=== PATIENT | male | born 1935 | race Caucasian/White ===

== ENCOUNTER 2018-02-19 21:05 | Emergency (ER) | payer OTHER ==
--- OUTSIDE RECORDS SUMMARY | 2018-02-19 21:07 | XMS REPORT ---
:1935 Author Organization eClinicalWorks Care Team Providers Name Role Phone Rohan Javan Provider Role Unavailable Allergies No Known Allergies Problems Problem Type Condition Code Onset Dates Condition Status Problem Ulcer of foot, left, with fat layer L97.522 Active exposed Problem Peripheral arterial disease I73.9 Active Problem Ulcerated, foot, right, with fat L97.512 Active layer exposed Problem Peripheral Vascular Disease 443.9 Active Problem Hallux rigidus 735.2 Active Problem Painful Scar 709.2 Active Medications No Known Medications Results No Known Results Summary Purpose eClinicalWorks Submission
--- OUTSIDE RECORDS SUMMARY | 2018-02-19 21:07 | XMS REPORT ---
:1935 Author Organization eClinicalWorks Care Team Providers Name Role Phone Javan Madrigal Provider Role Unavailable Allergies No Known Allergies [...]
--- OUTSIDE RECORDS SUMMARY | 2018-02-19 21:07 | XMS REPORT ---
:1935 [facility] Address [address] [place] [address] [address] [place] [address] Care Team Providers Name Role Phone IRA NOLAND Primary Care Provider Unavailable Problems This patient has no known problems. Allergies, Adverse Reactions, Alerts This patient has no known allergies or adverse reactions. Medications This patient has no known medications. Encounters Start End Encounter Admission Attending Care Care Encounter Date/Time Date/Time Type Type Clinicians Facility Department ID 2016-01-03 2016-01-03 Outpatient [facility] [id number] 00:01:00 00:01:00 2015-12-03 2015-12-03 Outpatient [facility] [id number] 00:01:00 00:01:00 2015-11-03 2015-11-03 Outpatient [facility] [id number] 00:01:00 00:01:00 2015-10-06 2015-10-06 Outpatient [facility] [id number] 13:31:00 13:31:00
--- OUTSIDE RECORDS SUMMARY | 2018-02-19 21:07 | XMS REPORT | Continuity of Care Document ---
:1935 Author Organization Interface Problems Problem Status Onset Classification Date Comments Source Date Reported Ulcer of foot, Active Problem 08/13/2017 [facility] left, with fat Podiatry layer exposed Assoc Peripheral Active Problem 08/13/2017 [facility] arterial Podiatry disease Assoc Ulcerated, Active Problem 08/13/2017 [facility] foot, right, Podiatry with fat layer Assoc exposed Peripheral Active Problem 08/13/2017 [facility] Vascular Podiatry Disease [facility] Hallux rigidus Active Problem 08/13/2017 [facility] Painful Scar Active Problem 08/13/2017 [facility] Medications Medication Details Route Status Patient Ordering Order Source Instructions Provider Date Allergies, Adverse Reactions, Alerts Substance Category Reaction Severity Reaction Status Date Comments Source type Reported Immunizations Immunization Date Given Site Status Last Updated Comments Source Results Order Results Value Reference Date Interpretation Comments Source Name Range Vital Signs Vital Sign Value Date Comments Source Encounters Location Location Encounter Encounter Reason Attending ADM DC Status Source Details Type Number For Provider Date Date Visit Procedures Procedure Code Date Perfomer Comments Source
--- OUTSIDE RECORDS SUMMARY | 2018-02-19 21:07 | XMS REPORT ---
:1935 Author Organization eClinicalWorks Care Team Providers Name Role Phone Javan Madrigal Provider Role Unavailable Allergies No Known Allergies Problems Problem Type Condition Code Onset Dates Condition Status Problem Ulcerated, foot, right, with fat L97.512 Active layer exposed Problem Peripheral arterial disease I73.9 Active Problem Ulcer of foot, left, with fat layer L97.522 Active exposed Problem Peripheral Vascular Disease 443.9 Active Problem Painful Scar 709.2 Active Problem Hallux rigidus 735.2 Active Medications No Known Medications Results No Known Results Summary Purpose eClinicalWorks Submission
[2018-02-19] MEDS ORDERED: NA CHLORIDE 0.9% 1,000 ML ONE (22:10)
[2018-02-19 22:18] LABS: Absolute Lymphocytes (CBC) 0.3 K/uL (0.7-4.9); Absolute Monocytes 1.2 K/uL (0.1-1.3); Absolute Neutrophil 3.3 K/uL (1.8-8.0); Basophils % 0.3 % (0-1.3); Eosinophils % 0.2 % (0-4.4); Hematocrit 34.5 % (39.6-49.0); Lymphocytes % 7.2 % (15.3-44.8); MCV 88.9 fL (80-100); MPV 9.3 fL (7.6-11.3); Monocytes % 24.5 % (3.3-12.3); Protime INR 2.28; RBC Red Blood Cell Count 3.88 M/uL (4.33-5.43)
[2018-02-19 22:35] LABS: ALT/SGPT 13 U/L (12-78); AST/SGOT 15 U/L (15-37); Albumin 3.5 g/dL (3.4-5.0); Alkaline Phosphatase 79 U/L (45-117); BUN Blood Urea Nitrogen 16 mg/dL (7-18); Bicarbonate 26 mmol/L (21-32); Bilirubin Direct 0.2 mg/dL (0-0.2); Bilirubin Total 0.8 mg/dL (0.2-1.0); CKMB Creatine Kinase MB < 1.0 ng/mL (0.3-3.6); Creatine Phosphokinase 31 U/L (39-308); Glucose Level 106 mg/dL (74-106); Lipase 77 U/L (73-393); Magnesium 2.4 mg/dL (1.8-2.4); NT PRO-BNP 3458 pg/mL (<450); Potassium 3.8 mmol/L (3.5-5.1); Protein, Total 7.2 g/dL (6.4-8.2); Sodium Level 137 mmol/L (136-145)
[2018-02-19 23:07] LABS: Anisocytosis 1+; Blood Morphology Comment NOTED (NOT SEEN); Platelet Estimate DECR; Platelets, Giant RARE
[2018-02-19] MEDS ORDERED: CEFTRIAXONE 1000 MG/VIAL ONE (23:56)
[2018-02-19] MEDS ORDERED: NA CHLORIDE 0.9% 100 ML IV ONE (23:56)
[2018-02-20 00:10] LABS: Urine Blood 2+ (NEG); Urine Glucose NEGATIVE (NEG); Urine Protein TRACE (NEG)
[2018-02-20 00:23] LABS: Urine Bacteria >50 /HPF (NONE SEEN); Urine Culture Reflex Order REFLEXED
--- NOTE | 2018-02-20 00:40 | EDPHYS ---
Physician Documentation [facility] Name: Ernie Carmona Age: 82 yrs Sex: Male : 1935 Arrival Date: 02/19/2018 Time: 21:05 Bed 27 Private MD: ED Physician Franky Wallace HPI: 02/19 23:31 This 82 yrs old Male presents to ER via Wheelchair with complaints of Urinary wa Problem. 23:31 c/o generalized tiredness today. per family, this happens when he has a bladder wa infection. pt has h/o bladder CA. also states have been having difficulty voiding urine. Onset: The symptoms/episode began/occurred today. Severity of symptoms: At their worst the symptoms were moderate in the emergency department the symptoms are unchanged. The patient has not experienced similar symptoms in the past. The patient has not recently seen a physician. Historical: - Allergies: 21:20 PENICILLINS; tl2 - Home Meds: 21:20 Xanax 0.5 mg Oral tab [Active]; cetirizine 10 mg oral tab 1 tab once daily [Active]; tl2 metoprolol tartrate 25 mg Oral tab 1 tab 2 times per day [Active]; furosemide 20 mg Oral tab 1 tab once daily [Active]; atorvastatin 20 mg oral tab 1 tab once daily [Active]; amiodarone 100 mg Oral tab 1 tab once daily [Active]; digoxin 125 mcg Oral tab 1 tab once daily [Active]; Xarelto 15 mg oral tab [Active]; potassium chloride 10 mEq Oral cpER 1 cap once daily [Active]; Cystex Cranberry 1,937-188 mg/15 mL oral liqd [Active]; famotidine 40 mg Oral tab 1 tab once daily [Active]; loratadine 10 mg oral tab 1 tab once daily [Active]; - 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 - Social history:: Smoking status: Patient/guardian denies using tobacco. - Ebola Screening: : No symptoms or risks identified at this time. - Family history:: not pertinent. - Hospitalizations: : No recent hospitalization is reported. ROS: 23:34 Constitutional: Negative for fever, chills, and weight loss, Eyes: Negative for injury, wa pain, redness, and discharge, ENT: Negative for injury, pain, and discharge, Neck: Negative for injury, pain, and swelling, Cardiovascular: Negative for chest pain, palpitations, and edema, Respiratory: Negative for shortness of breath, cough, wheezing, and pleuritic chest pain, Abdomen/GI: Negative for abdominal pain, nausea, vomiting, diarrhea, and constipation, Back: Negative for injury and pain, MS/Extremity: Negative for injury and deformity, Skin: Negative for injury, rash, and discoloration, Neuro: Negative for headache, weakness, numbness, tingling, and seizure, Psych: Negative for depression, anxiety, suicide ideation, homicidal ideation, and hallucinations. 23:34 : Positive for difficulty urinating, Negative for pelvic pain. Exam: 23:36 Constitutional: This is a well developed, well nourished patient who is awake, alert, wa and in no acute distress. Head/Face: Normocephalic, atraumatic. Eyes: Pupils equal round and reactive to light, extra-ocular motions intact. Lids and lashes normal. Conjunctiva and sclera are non-icteric and not injected. Cornea within normal limits. Periorbital areas with no swelling, redness, or edema. ENT: Nares patent. No nasal discharge, no septal abnormalities noted. Tympanic membranes are normal and external auditory canals are clear. Oropharynx with no redness, swelling, or masses, exudates, or evidence of obstruction, uvula midline. Mucous membranes moist. Neck: Trachea midline, no thyromegaly or masses palpated, and no cervical lymphadenopathy. Supple, full range of motion without nuchal rigidity, or vertebral point tenderness. No Meningismus. Chest/axilla: Normal chest wall appearance and motion. Nontender with no deformity. No lesions are appreciated. Cardiovascular: Regular rate and rhythm with a normal S1 and S2. No gallops, murmurs, or rubs. Normal PMI, no JVD. No pulse deficits. Respiratory: Lungs have equal breath sounds bilaterally, clear to auscultation and percussion. No rales, rhonchi or wheezes noted. No increased work of breathing, no retractions or nasal flaring. Abdomen/GI: Soft, non-tender, with normal bowel sounds. No distension or tympany. No guarding or rebound. No evidence of tenderness throughout. Back: No spinal tenderness. No costovertebral tenderness. Full range of motion. Skin: Warm, dry with normal turgor. Normal color with no rashes, no lesions, and no evidence of cellulitis. MS/ Extremity: Pulses equal, no cyanosis. Neurovascular intact. Full, normal range of motion. Neuro: Awake and alert, GCS 15, oriented to person, place, time, and situation. Cranial nerves II-XII grossly intact. Motor strength 5/5 in all extremities. Sensory grossly intact. Cerebellar exam normal. Normal gait. Psych: Awake, alert, with orientation to person, place and time. Behavior, mood, and affect are within normal limits. 23:36 : Male external genitalia: normal, Bladder: soft suprapubis. non-tender. Vital Signs: 21:08 BP 115 / 65; Pulse 75; Resp 18; Temp 101; Pulse Ox 97% on R/A; Weight 74.84 kg; Height kr2 5 ft. 10 in. (177.80 cm); Pain 0/10; 22:35 BP 100 / 52; Pulse 68; Resp 22; Temp 98.5; Pulse Ox 95% on R/A; kr2 23:30 BP 93 / 59; Pulse 68; Resp 20; Pulse Ox 96% on R/A; kr2 02/20 00:15 BP 98 / 53; Pulse 58; Resp 20; Pulse Ox 96% on R/A; kr2 02/19 21:08 Body Mass Index 23.67 (74.84 kg, 177.80 cm) [facility] MDM: 02/19 21:25 Patient medically screened. nj 23:37 Differential Diagnosis r/o acute infection. . Data reviewed: vital signs, nurses notes, nj lab test result(s). Test interpretation: by ED physician or midlevel provider: labs noted for anemia and low platelets. elevated BNP. 02/20 00:37 Test interpretation: by ED physician or midlevel provider: labs noted for low plts and wa elevated BNP. UA noted positive for UTI. Response to treatment: the patient's symptoms have markedly improved after treatment. ED course: IV rocephin given. pt admitted to improvement. will d/c with meds for UTI and close f/u with PMD. 02/19 21:54 Order name: Basic Metabolic Panel nj 02/19 21:54 Order name: Urine Microscopic Only nj 02/19 21:56 Order name: Basic Metabolic Panel; Complete Time: 23:26 nj 02/19 21:56 Order name: CBC with Diff; Complete Time: 23:27 nj 02/19 21:56 Order name: Ckmb; Complete Time: 23:28 nj 02/19 21:56 Order name: CPK; Complete Time: 23:27 nj 02/19 21:56 Order name: LFT's; Complete Time: 23:27 nj 02/19 21:56 Order name: Magnesium; Complete Time: 23: nj 02/19 21:56 Order name: NT PRO-BNP; Complete Time: 23: nj 02/19 21:56 Order name: PT-INR; Complete Time: 23:28 nj 02/19 21:54 Order name: IV Saline Lock; Complete Time: 22: nj 02/19 21:54 Order name: Labs collected and sent; Complete Time: 22: nj 02/19 21:54 Order name: Urine Dipstick-Ancillary (obtain specimen); Complete Time: 00: nj 02/19 21:56 Order name: Troponin (emerg Dept Use Only); Complete Time: 23:28 nj 02/19 21:56 Order name: XRAY Chest (1 view) nj 02/19 21:56 Order name: EKG; Complete Time: 21:56 nj 02/19 21:56 Order name: Cardiac monitoring; Complete Time: 22:00 nj 02/19 21:56 Order name: EKG - Nurse/Tech; Complete Time: 22:00 nj 02/19 21:56 Order name: IV Saline Lock; Complete Time: 22:00 nj 02/19 21:56 Order name: Labs collected and sent; Complete Time: 22: nj 02/19 22:11 Order name: Lipase; Complete Time: 23: [facility]IL 02/19 23:07 Order name: Manual Differential; Complete Time: 23: [facility] 02/19 23:56 Order name: Urine Dipstick--Ancillary (enter results) fl 02/20 00:24 Order name: Urine Culture [facility] 02/19 21:56 Order name: O2 Per Protocol; Complete Time: 22: nj 02/19 21:56 Order name: O2 Sat Monitoring; Complete Time: 22:01 nj 02/19 21:56 Order name: Urine Dipstick-Ancillary (obtain specimen); Complete Time: 00:09 nj 02/20 00:08 Order name: Straight Cath - Urine; Complete Time: 00:08 [facility] Administered Medications: 02/19 22:09 Drug: NS 0.9% 1000 ml Route: IV; Rate: 1 bolus; Site: right antecubital; kr2 23:30 Follow up: Response: No adverse reaction; IV Status: Completed infusion kr2 02/20 00:00 Drug: Rocephin - (cefTRIAXone) 2 grams Route: IVPB; Infused Over: 30 mins; Site: right kr2 antecubital; 00:30 Follow up: Response: No adverse reaction; IV Status: Completed infusion 2 Disposition: 02/20/18 00:39 Discharged to Home. Impression: Acute Weakness, Acute UTI. - Condition is Stable. - Discharge Instructions: Urinary Tract Infection, Adult, Iras-jz-Xtji, Weakness, Npwf-jv-Zzah. - Prescriptions for Keflex 500 mg Oral Capsule - take 1 capsule by ORAL route every 8 hours for 5 days; 15 capsule. - Medication Reconciliation Form, Thank You Letter, Antibiotic Education, Prescription Opioid Use form. - Follow up: Private Physician; When: 1 - 2 days; Reason: Re-evaluation by your physician. - Problem is new. - Symptoms have improved. - Notes: take antibiotics as prescribed. return for any worsening concerns you may have Signatures: Dispatcher [facility] Jocelyne Sprague RN RN tl2 Franky Wallace MD MD nj Maryjane Lucero, SAMREEN RN kr2 Corrections: (The following items were deleted from the chart) 02/19 22:10 21:55 Basic Metabolic Panel ordered. [facility] 22:10 21:55 CBC+H.LAB.BRZ ordered. [facility] 22:10 21:55 HEPATIC FUNCTION+C.LAB.BRZ ordered. [facility] 22:10 21:55 LIPASE+C.LAB.BRZ ordered. [facility] 02/20 00:59 00:39 02/20/2018 00:39 Discharged to Home. Impression: Acute Weakness; Acute UTI. kr2 Condition is Stable. Forms are Medication Reconciliation Form, Thank You Letter, Antibiotic Education, Prescription Opioid Use. Follow up: Private Physician; When: 1 - 2 days; Reason: Re-evaluation by your physician. Problem is new. Symptoms have improved. wa
--- NOTE | 2018-02-20 00:40 | ER ---
Nurse's Notes [facility] Name: Ernie Carmona Age: 82 yrs Sex: Male : 1935 Arrival Date: 02/19/2018 Time: 21:05 Bed 27 Private MD: Diagnosis: Acute Weakness;Acute UTI Presentation: 02/19 21:09 Presenting complaint: Patient states: I started feeling very weak and tired today. I kr2 have been sneezing and had a runny nose. Its also taking me a long time to urinate lately. Transition of care: patient was not received from another setting of care. Onset of symptoms was February 19, 2018. Risk Assessment: Do you want to hurt yourself or someone else? Patient reports no desire to harm self or others. Initial Sepsis Screen: Does the patient meet any 2 criteria? RR > 20 per min. Temp <36.0*C (96.8*F)) or > 38.3*C (100.4*F). Yes Does the patient have a suspected source of infection? Yes: Other: family reports patient has a history of bladder cancer and UTI's. Patient reports it has been harder for him to urinate recently. Care prior to arrival: None. 21:09 Method Of Arrival: Wheelchair kr2 21:09 Acuity: SKIP 3 kr2 Triage Assessment: 21:13 General: Appears in no apparent distress. comfortable, well groomed, well developed, kr2 well nourished, Behavior is calm, cooperative, appropriate for age. Pain: Denies pain. Historical: - Allergies: 21:20 PENICILLINS; tl2 - Home Meds: 21:20 Xanax 0.5 mg Oral tab [Active]; cetirizine 10 mg oral tab 1 tab once daily [Active]; tl2 metoprolol tartrate 25 mg Oral tab 1 tab 2 times per day [Active]; furosemide 20 mg Oral tab 1 tab once daily [Active]; atorvastatin 20 mg oral tab 1 tab once daily [Active]; amiodarone 100 mg Oral tab 1 tab once daily [Active]; digoxin 125 mcg Oral tab 1 tab once daily [Active]; Xarelto 15 mg oral tab [Active]; potassium chloride 10 mEq Oral cpER 1 cap once daily [Active]; Cystex Cranberry 1,937-188 mg/15 mL oral liqd [Active]; famotidine 40 mg Oral tab 1 tab once daily [Active]; loratadine 10 mg oral tab 1 tab once daily [Active]; - 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 - Social history:: Smoking status: Patient/guardian denies using tobacco. - Ebola Screening: : No symptoms or risks identified at this time. - Family history:: not pertinent. - Hospitalizations: : No recent hospitalization is reported. Screenin:11 Abuse screen: Denies threats or abuse. Denies injuries from another. Nutritional kr2 screening: No deficits noted. Tuberculosis screening: No symptoms or risk factors identified. Fall Risk None identified. Assessment: 21:15 General: Appears in no apparent distress. comfortable, well groomed, well developed, kr2 well nourished, Behavior is calm, cooperative, appropriate for age. Pain: Denies pain. Neuro: Level of Consciousness is awake, alert, obeys commands, Oriented to person, place, time, situation, Appropriate for age. Cardiovascular: Reports fatigue, Capillary refill < 3 seconds in bilateral fingers Rhythm is regular. Respiratory: Airway is patent Respiratory effort is even, unlabored, Respiratory pattern is regular, symmetrical. GI: Abdomen is flat, non-distended. : Reports "it takes me a long time to urinate, I am having more difficulty lately' Denies burning with urination. EENT: Oral mucosa is dry. Derm: Skin is intact, with poor turgor Skin is sweaty, patient was wearing heavy long sleeve sweater upon arrival, which was removed Skin is pink, Skin temperature is hot. Musculoskeletal: Circulation, motion, and sensation intact. Range of motion: limited in left hip, left knee, right hip and right knee. 22:30 Reassessment: Patient appears in no apparent distress at this time. Patient and/or kr2 family updated on plan of care and expected duration. Pain level reassessed. Patient is alert, oriented x 3, equal unlabored respirations, skin warm/dry/pink. Patient denies pain at this time. 23:30 Reassessment: Patient appears in no apparent distress at this time. Patient and/or kr2 family updated on plan of care and expected duration. Pain level reassessed. Patient is alert, oriented x 3, equal unlabored respirations, skin warm/dry/pink. Patient denies pain at this time. 02/20 00:14 Reassessment: Patient appears in no apparent distress at this time. Patient and/or kr2 family updated on plan of care and expected duration. Pain level reassessed. Patient is alert, oriented x 3, equal unlabored respirations, skin warm/dry/pink. Patient denies pain at this time. 00:58 Reassessment: Patient appears in no apparent distress at this time. Patient and/or kr2 family updated on plan of care and expected duration. Pain level reassessed. Patient is alert, oriented x 3, equal unlabored respirations, skin warm/dry/pink. Patient denies pain at this time. Patient states feeling better. Patient states symptoms have improved. Vital Signs: 02/19 21:08 BP 115 / 65; Pulse 75; Resp 18; Temp 101; Pulse Ox 97% on R/A; Weight 74.84 kg; Height kr2 5 ft. 10 in. (177.80 cm); Pain 0/10; 22:35 BP 100 / 52; Pulse 68; Resp 22; Temp 98.5; Pulse Ox 95% on R/A; kr2 23:30 BP 93 / 59; Pulse 68; Resp 20; Pulse Ox 96% on R/A; kr2 02/20 00:15 BP 98 / 53; Pulse 58; Resp 20; Pulse Ox 96% on R/A; kr2 02/19 21:08 Body Mass Index 23.67 (74.84 kg, 177.80 cm) 2 ED Course: 02/19 21:05 Patient arrived in ED. es 21:07 Maryjane Lucero, RN is Primary Nurse. kr2 21:11 Triage completed. kr2 21:13 Arm band placed on. kr2 21:15 Patient has correct armband on for positive identification. Bed in low position. Call kr2 light in reach. Side rails up X2. Adult w/ patient. Pulse ox on. NIBP on. Door closed. Noise minimized. Verbal reassurance given. Head of bed elevated. 21:15 Inserted saline lock: 20 gauge in right antecubital area, using aseptic technique. kr2 ,using aseptic technique. By SAMREEN Haley Blood collected. 21:20 No provider procedures requiring assistance completed. tl2 21:25 Franky Wallace MD is Attending Physician. ne 22:12 X-ray completed. Portable x-ray completed in exam room. Patient tolerated procedure kw well. 22:12 XRAY Chest (1 view) In Process Unspecified. EDMS 23:50 Straight cath inserted, using sterile technique, Specimen obtained. 15 Fr Returned kr2 300mL clear yellow urine. Patient tolerated well. 02/20 00:58 IV discontinued, intact, bleeding controlled, No redness/swelling at site. Pressure kr2 dressing applied. Administered Medications: 02/19 22:09 Drug: NS 0.9% 1000 ml Route: IV; Rate: 1 bolus; Site: right antecubital; kr2 23:30 Follow up: Response: No adverse reaction; IV Status: Completed infusion kr2 02/20 00:00 Drug: Rocephin - (cefTRIAXone) 2 grams Route: IVPB; Infused Over: 30 mins; Site: right kr2 antecubital; 00:30 Follow up: Response: No adverse reaction; IV Status: Completed infusion kr2 Outcome: 00:39 Discharge ordered by . ne 00:57 Discharged to home via wheelchair, with family. kr2 00:57 Condition: improved 00:57 Discharge instructions given to patient, family, Instructed on discharge instructions, follow up and referral plans. medication usage, Demonstrated understanding of instructions, follow-up care, medications, Prescriptions given X 1. 00:59 Patient left the ED. kr2 Addendum: 02/23/2018 08:24 Addendum: Culture Results: Positive urine culture. Phone call Attempt #1 spoke with s s patient's daughter who reports that patient's symptoms have improved. Offered to fax culture report to PCP today, daughter requested report be faxed to Dr. Matilda Vasquez in [place]. Attempted to call Dr. Matilda Correa at which voice recording reports Dr. Vasquez will be out of the office until March 02. Unable to leave . Signatures: Dispatcher [employer] Leticia Tee Shelby, RN RN Sasha Contreras Taylor, RN RN tl2 MadisonFranky worthy MD MD wa Reaves, Karey, RN RN kr2 Corrections: (The following items were deleted from the chart) 02/19 22:37 21:09 Initial Sepsis Screen: Does the patient meet any 2 criteria? No. Patient's kr2 initial sepsis screen is negative. Does the patient have a suspected source of infection? No. Patient's initial sepsis screen is negative. kr2
[2018-02-20 01:04] VITALS: TEMP 98.5
[2018-02-20 01:05] VITALS: O2SAT 96
[2018-02-20 01:06] VITALS: BP 98/53
--- NOTE | 2018-02-20 08:05 | RAD REPORT ---
EXAM DESCRIPTION: Jai Single View02/19/2018 10:15 pm CLINICAL HISTORY: Shortness of breath COMPARISON: May 2017 FINDINGS: Mild bilateral interstitial lung opacities are present. . The heart is borderline enlarge d. Postsurgical changes involve the chest. A right aortic arch is present. A central venous catheter has its tip in the distal left brachiocephalic vein IMPRESSION: Mild bilateral interstitial lung opacities may be chronic or indicate pneumonitis
--- NOTE | 2018-02-20 08:06 | EKG ---
Test Date: 2018-02-19 Test Time: 21:19:58 Audit Associate: GERARDO MEASUREMENT RESULTS: Intervals: Rate: 73 AK: 186 QRSD: 124 QT: 406 QTc: 447 [place]: P: 77 AK: 186 QRS: -66 T: 36 INTERPRETIVE STATEMENTS: Normal sinus rhythm Left axis deviation Cannot rule out Anterior infarct, age undetermined Abnormal ECG Compared to ECG 05/17/2017 14:05:21 Left-axis deviation now present Myocardial infarct finding now present Atrial fibrillation no longer present Left anterior fascicular block no longer present ST (T wave) deviation no longer present Electronically Signed On 02-20-18 08:03:17 CDT by Otf Montalvo
== END 2018-02-20 00:59 | disposition home or self-care (01) ==
LOC: ER 21:05
DX: N39.0 Urinary tract infection, site not specified (principal); Z85.51 Personal history of malignant neoplasm of bladder; Z88.0 Allergy status to penicillin
CPT/HCPCS: 36415; 51702; 71045; 80048; 80076; 82550; 82553; 83690; 83735; 83880; 84484; 85025; 85610; 87077; 87086; 87088; 87186; 93005; 96361; 96365; 99284; J7030; 81003; 81015

== ENCOUNTER 2018-12-04 19:19 | Observation (INO) | payer OTHER ==
--- OUTSIDE RECORDS SUMMARY | 2018-12-04 19:52 | XMS REPORT | Continuity of Care Document ---
:1935 Author Organization Interface Problems Problem Status Onset Classification Date Comments Source Date Reported Ulcer of foot, Active Problem 08/13/2017 [facility] left, with fat Podiatry layer exposed Assoc Peripheral Active Problem 08/13/2017 [facility] arterial Podiatry disease Assoc Ulcerated, Active Problem 08/13/2017 [facility] foot, right, Podiatry with fat layer Assoc exposed Peripheral Active Problem 08/13/2017 [facility] Vascular Podiatry Disease [facility] Hallux rigidus Active Problem 08/13/2017 [facility] Painful Scar Active Problem 08/13/2017 [facility] Medications Medication Details Route Status [...]
--- OUTSIDE RECORDS SUMMARY | 2018-12-04 19:53 | XMS REPORT ---
:1935 [facility] Address [address] [place] [address] Dr. Rubio [address] [place] [id number] Care Team Providers Name Role Phone IRA NOLAND Primary Care Provider Unavailable Problems This patient has no known problems. Allergies, Adverse Reactions, Alerts This patient has no known allergies or adverse reactions. Medications This patient has no known medications. Encounters Start End Encounter Admission Attending Care Care Encounter Date/Time Date/Time Type Type Clinicians Facility Department ID 2016-01-03 2016-01-03 Outpatient [facility] [id number] 00:01:00 00:01:00 2015-12-03 2015-12-03 Outpatient [facility] [id number] 00:01:00 00:01:00 2015-11-03 2015-11-03 Outpatient [facility] [id number] 00:01:00 00:01:00 2015-10-06 2015-10-06 Outpatient [facility] [id number] 13:31:00 13:31:00
[2018-12-04] MEDS ORDERED: FENTANYL CITR 100 MCG/2 ML ONE (20:33)
[2018-12-04] MEDS ORDERED: NA CHLORIDE 0.9% 500 ML ONE (20:33)
[2018-12-04] MEDS ORDERED: ONDANSETRON 4 MG/2 ML VIAL ONE ×2 (20:33→21:54)
[2018-12-04] MEDS ORDERED: NA CHLORIDE 0.9% 1,000 ML ONE (20:34)
[2018-12-04] MEDS ORDERED: FAMOTIDINE 20 MG/2 ML VIAL IV ONE (20:34)
--- NOTE | 2018-12-04 20:35 | RAD REPORT ---
EXAM DESCRIPTION: RAD - Chest Single View - 12/04/2018 8:29 pm CLINICAL HISTORY: ABDOMINAL DISTENTION Chest pain. COMPARISON: Chest Single View dated 02/19/2018; Chest Single View dated 05/20/2017; Chest Single View dated 05/19/2017; Chest Single View dated 05/18/2017 FINDINGS: Portable technique limits examination quality. Emphysematous changes are present throughout the lungs. 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 Left-sided port catheter has tip in the SVC.
[2018-12-04 20:43] LABS: Absolute Lymphocytes (CBC) 1.1 K/uL (0.7-4.9); Absolute Monocytes 1.2 K/uL (0.1-1.3); Absolute Neutrophil 3.9 K/uL (1.8-8.0); Basophils % 0.4 % (0-1.3); Eosinophils % 0.4 % (0-4.4); Hematocrit 38.8 % (39.6-49.0); Lymphocytes % 17.3 % (15.3-44.8); Monocytes % 19.4 % (3.3-12.3); RBC Red Blood Cell Count 4.26 M/uL (4.33-5.43)
--- NOTE | 2018-12-04 20:46 | RAD REPORT ---
EXAM DESCRIPTION: CT - Stone Protocol - 12/04/2018 8:32 pm CLINICAL HISTORY: Flank pain. Abdominal distention;Abd pain COMPARISON: CT ABD PELVIS W CONTRAST dated 12/19/2011; Thorax W/ Con dated 05/21/2017 TECHNIQUE: Axial images were obtained without oral or IV contrast. Lack of contrast limits solid org an and vascular assessment. The rpiwh-vf-ivil spans the entirety of the system partially obscuring uppermost abdomen and lung bases. Coronal reformatted images were obtained and reviewed. All CT scans are performed using dose optimization technique as appropriate and may include automated exposure control or mA/KV adjustment according to patient size. FINDINGS: Emphysematous changes are present in both lung bases. 20 x 20 mm noncalcified pleural abut ting pulmonary nodule is seen in the right lower lobe posteriorly. Imaged portions of the liver and spleen show no suspicious findings on non-contrast imaging.Cholecyst ectomy clips. The pancreas and adrenal glands are normal. No pathologic lymphadenopathy in the abdome n or pelvis. Moderate right hydronephrosis and hydroureter is present caused by a 3 mm stone in the mid right uret er. The left kidney appears absent. Urinary bladder is decompressed incompletely evaluated. No bowel obstruction, free air, free fluid or abscess. Moderate stool throughout the colon. Moderate lumbosacral degenerative changes. IMPRESSION: Moderate right hydronephrosis and proximal hydroureter is present caused by a 3 mm stone mid right ureter. The patient's left kidney is absent. 20 mm noncalcified pleural abutting pulmonary nodule in the right lung base posteriorly. This may be neoplastic in etiology and follow-up PET-CT evaluation be recommended.
[2018-12-04 20:50] LABS: Protime INR 1.53
[2018-12-04 20:56] LABS: Bilirubin Direct 0.2 mg/dL (0-0.2); Bilirubin Total 0.6 mg/dL (0.2-1.0); Potassium 3.7 mmol/L (3.5-5.1); Protein, Total 7.8 g/dL (6.4-8.2)
[2018-12-04 20:59] LABS: Magnesium 2.5 mg/dL (1.8-2.4); Troponin (Emerg Dept Use Only) 0.03 ng/mL (0.0-0.045)
[2018-12-04 21:16] LABS: Blood Morphology Comment NOT SEEN (NOT SEEN); Platelet Estimate DECR
--- NOTE | 2018-12-04 21:50 | EDPHYS ---
Physician Documentation [facility] Name: Ernie Carmona Age: 83 yrs Sex: Male : 1935 Arrival Date: 12/04/2018 Time: 19:21 Bed 27 Private MD: out of town, doctor ED Physician Jhon Miranda HPI: 12/04 19:56 This 83 yrs old Male presents to ER via Wheelchair with complaints of silvia Vomiting, Flank Pain. 19:56 The patient presents to the emergency department with nausea, vomiting. silvia Historical: - Allergies: 19:27 OPIOID ANALGESICS; ed1 19:27 Analog; ed1 19:27 PENICILLINS; ed1 - PMHx: 19:27 Bladder cancer; Papillary urothelial carcinoma; Born with ONE kidney; stroke- 04/2016; ed1 - PSHx: 19:27 heart bypass; Cholecystectomy; TURP; Hernia repair; ed1 - Immunization history:: Adult Immunizations up to date. - Social history:: Smoking status: Patient/guardian denies using tobacco. - Ebola Screening: : Patient negative for fever greater than or equal to 101.5 degrees Fahrenheit, and additional compatible Ebola Virus Disease symptoms Patient denies exposure to infectious person Patient denies travel to an Ebola-affected area in the 21 days before illness onset No symptoms or risks identified at this time. ROS: 20:14 Constitutional: Negative for fever, chills, and weight loss, Eyes: Negative for injury, silvia pain, redness, and discharge, ENT: Negative for injury, pain, and discharge, Neck: Negative for injury, pain, and swelling, Cardiovascular: Negative for chest pain, palpitations, and edema, Respiratory: Negative for shortness of breath, cough, wheezing, and pleuritic chest pain, Back: Negative for injury and pain, : Negative for injury, bleeding, discharge, and swelling, MS/Extremity: Negative for injury and deformity, Skin: Negative for injury, rash, and discoloration, Neuro: Negative for headache, weakness, numbness, tingling, and seizure, Psych: Negative for depression, anxiety, suicide ideation, homicidal ideation, and hallucinations, Allergy/Immunology: Negative for hives, rash, and allergies, Endocrine: Negative for neck swelling, polydipsia, polyuria, polyphagia, and marked weight changes, Hematologic/Lymphatic: Negative for swollen nodes, abnormal bleeding, and unusual bruising. 20:14 Abdomen/GI: Positive for abdominal pain, nausea, vomiting, of the anterior aspect of right lateral abdomen, posterior aspect of right lateral abdomen, right upper quadrant and right lower quadrant. Exam: 20:14 Constitutional: This is a well developed, well nourished patient who is awake, alert, silvia and in no acute distress. Head/Face: Normocephalic, atraumatic. Eyes: Pupils equal round and reactive to light, extra-ocular motions intact. Lids and lashes normal. Conjunctiva and sclera are non-icteric and not injected. Cornea within normal limits. Periorbital areas with no swelling, redness, or edema. ENT: Nares patent. No nasal discharge, no septal abnormalities noted. Tympanic membranes are normal and external auditory canals are clear. Oropharynx with no redness, swelling, or masses, exudates, or evidence of obstruction, uvula midline. Mucous membranes moist. Neck: Trachea midline, no thyromegaly or masses palpated, and no cervical lymphadenopathy. Supple, full range of motion without nuchal rigidity, or vertebral point tenderness. No Meningismus. Chest/axilla: Normal chest wall appearance and motion. Nontender with no deformity. No lesions are appreciated. Cardiovascular: Regular rate and rhythm with a normal S1 and S2. No gallops, murmurs, or rubs. Normal PMI, no JVD. No pulse deficits. Respiratory: Lungs have equal breath sounds bilaterally, clear to auscultation and percussion. No rales, rhonchi or wheezes noted. No increased work of breathing, no retractions or nasal flaring. Male : Normal genitalia with no discharge or lesions. Skin: Warm, dry with normal turgor. Normal color with no rashes, no lesions, and no evidence of cellulitis. MS/ Extremity: Pulses equal, no cyanosis. Neurovascular intact. Full, normal range of motion. Neuro: Awake and alert, GCS 15, oriented to person, place, time, and situation. Cranial nerves II-XII grossly intact. Motor strength 5/5 in all extremities. Sensory grossly intact. Cerebellar exam normal. Normal gait. Psych: Awake, alert, with orientation to person, place and time. Behavior, mood, and affect are within normal limits. 20:14 Abdomen/GI: Inspection: abdomen appears normal, Bowel sounds: normal, in all quadrants, Palpation: mild abdominal tenderness, in the anterior aspect of right lateral abdomen, posterior aspect of right lateral abdomen, right upper quadrant and right lower quadrant, Liver: no appreciated palpable abnormalities, Hernia: not appreciated. Vital Signs: 19:27 BP 128 / 86; Pulse 69; Resp 18; Temp 97.8; Pulse Ox 97% on R/A; Weight 96.62 kg; Height ed1 5 ft. 10 in. (177.80 cm); Pain 5/10; 20:15 BP 141 / 79; Pulse 61; Resp 19; Pulse Ox 99% ; ea 21:00 BP 143 / 63; Pulse 66; Resp 18; Temp 98.2; Pulse Ox 97% on R/A; ea 22:30 BP 135 / 68; Pulse 64; Resp 19; Pulse Ox 97% ; ea 23:11 BP 130 / 60; Pulse 67; Resp 18; Pulse Ox 95% on R/A; ea 23:45 BP 129 / 59; Pulse 60; Resp 19; Temp 98(O); Pulse Ox 99% ; ea 19:27 Body Mass Index 30.56 (96.62 kg, 177.80 cm) ed1 MDM: 19:45 Patient medically screened. [facility] 20:14 Data reviewed: vital signs, nurses notes, lab test result(s), EKG, radiologic studies, [facility] CT scan, plain films. 12/04 20:06 Order name: Basic Metabolic Panel; Complete Time: 21:40 12/04 20:06 Order name: CBC with Diff; Complete Time: 21:40 12/04 20:06 Order name: Creatinine for Radiology; Complete Time: 21:40 12/04 20:06 Order name: Hepatic Function; Complete Time: 21:40 12/04 20:06 Order name: Lipase; Complete Time: 21:40 12/04 20:13 Order name: Magnesium; Complete Time: 21:40 [facility] 12/04 20:13 Order name: NT PRO-BNP; Complete Time: 21:40 [facility] 12/04 20:13 Order name: PT-INR; Complete Time: 21:40 [facility] 12/04 20:13 Order name: Troponin (emerg Dept Use Only); Complete Time: 21:40 [facility] 12/04 20:13 Order name: XRAY Chest (1 view); Complete Time: 21:40 silvia 12/04 20:13 Order name: Urine Culture [facility] 12/04 20:13 Order name: CT Stone Protocol; Complete Time: 21:40 silvia 12/04 20:47 Order name: Manual Differential; Complete Time: 21:40 EDMS 12/04 22:31 Order name: Urine Dipstick--Ancillary (enter results) cm6 12/04 20:06 Order name: IV Saline Lock; Complete Time: 21:13 ea 12/04 20:06 Order name: Labs collected and sent; Complete Time: 21:13 ea 12/04 20:13 Order name: EKG; Complete Time: 20:14 [facility] 12/04 20:13 Order name: Cardiac monitoring; Complete Time: 21:07 [facility] 12/04 20:13 Order name: EKG - Nurse/Tech; Complete Time: 21:07 [facility] 12/04 20:13 Order name: O2 Per Protocol; Complete Time: 21:07 [facility] 12/04 20:13 Order name: O2 Sat Monitoring; Complete Time: 21:07 [facility] 12/04 20:13 Order name: Urine Dipstick-Ancillary (obtain specimen); Complete Time: 22:42 [facility] 12/04 21:44 Order name: NPO; Complete Time: 22:41 [facility] 12/04 21:52 Order name: Altman; Complete Time: 22:41 [facility] Administered Medications: 20:30 Drug: Zofran 4 mg Route: IVP; Site: right antecubital; ea 21:14 Follow up: Response: No adverse reaction; Marked relief of symptoms; Nausea is decreasedea 20:47 Drug: fentaNYL (PF) 25 mcg Route: IVP; Site: right antecubital; ea 21:14 Follow up: Response: No adverse reaction; Pain is decreased ea 20:48 Drug: NS 0.9% 500 ml Route: IV; Rate: bolus; Site: right antecubital; ea 21:14 Follow up: Response: No adverse reaction; IV Status: Completed infusion; IV Intake: ea 500ml 20:55 Drug: Pepcid 20 mg Route: IVP; Site: right antecubital; ea 21:14 Follow up: Response: No adverse reaction ea 20:57 Drug: NS 0.9% 1000 ml Route: IV; Rate: 125 ml/hr; Site: right antecubital; ea 22:42 Follow up: Response: No adverse reaction; IV Status: Infusion continued upon admission ea 21:13 Drug: fentaNYL (PF) 25 mcg Route: IVP; Site: right antecubital; ea 22:38 Follow up: Response: No adverse reaction; Pain is decreased ea 22:39 Follow up: Response: No adverse reaction ea 21:45 Drug: Zofran 4 mg Route: IVP; Site: right antecubital; ea 22:41 Follow up: Response: No adverse reaction; Marked relief of symptoms ea 22:24 Drug: fentaNYL (PF) 25 mcg Route: IVP; Site: right antecubital; ea 22:40 Follow up: Response: No adverse reaction; Pain is decreased ea 22:29 Drug: Rocephin - (cefTRIAXone) 1 grams Route: IVPB; Infused Over: 30 mins; Site: right ea antecubital; 22:41 Follow up: Response: No adverse reaction; IV Status: Completed infusion ea Disposition: 12/04/18 21:49 Hospitalization ordered by Ronald Jackson for Inpatient Admission. Preliminary diagnosis are Hydronephrosis with renal and ureteral calculous obstruction - solitary kidney, Abdominal tenderness, Vomiting, Bandemia, Urinary tract infection, site not specified. - Bed requested for Telemetry/MedSurg (Inpatient). - Status is Inpatient Admission. ea - Condition is Fair. - Problem is new. - Symptoms have improved. UTI on Admission? Yes Signatures: Dispatcher [employer] EDMS Jhon Miranda MD MD cha Riggs, Erika, RN RN ed1 Sparkle Lantigua RN RN Belinda Dalton RN RN ea Corrections: (The following items were deleted from the chart) 21:52 21:49 Hospitalization Ordered by Ronald Jackson MD for Inpatient Admission. Preliminary [facility] diagnosis is Hydronephrosis with renal and ureteral calculous obstruction - solitary kidney; Abdominal tenderness; Vomiting. Bed requested for Telemetry/MedSurg (Inpatient). Status is Inpatient Admission. Condition is Fair. Problem is new. Symptoms have improved. UTI on Admission? Yes. silvia 22:22 21:52 12/04/2018 21:49 Hospitalization Ordered by Ronald Jackson MD for Inpatient silvia Admission. Preliminary diagnosis is Hydronephrosis with renal and ureteral calculous obstruction - solitary kidney; Abdominal tenderness; Vomiting; Bandemia. Bed requested for Telemetry/MedSurg (Inpatient). Status is Inpatient Admission. Condition is Fair. Problem is new. Symptoms have improved. UTI on Admission? Yes. [facility] 23:09 22:22 12/04/2018 21:49 Hospitalization Ordered by Ronald Jackson MD for Inpatient cg Admission. Preliminary diagnosis is Hydronephrosis with renal and ureteral calculous obstruction - solitary kidney; Abdominal tenderness; Vomiting; Bandemia; Urinary tract infection, site not specified. Bed requested for Telemetry/MedSurg (Inpatient). Status is Inpatient Admission. Condition is Fair. Problem is new. Symptoms have improved. UTI on Admission? Yes. [facility] 23:50 23:09 12/04/2018 21:49 Hospitalization Ordered by Ronald Jackson MD for Inpatient ea Admission. Preliminary diagnosis is Hydronephrosis with renal and ureteral calculous obstruction - solitary kidney; Abdominal tenderness; Vomiting; Bandemia; Urinary tract infection, site not specified. Bed requested for Telemetry/MedSurg (Inpatient). Status is Inpatient Admission. Condition is Fair. Problem is new. Symptoms have improved. UTI on Admission? Yes. cg
--- NOTE | 2018-12-04 21:50 | ER ---
Nurse's Notes [facility] Name: Ernie Carmona Age: 83 yrs Sex: Male : 1935 Arrival Date: 12/04/2018 Time: 19:21 Bed 27 Private MD: out of town, doctor Diagnosis: Hydronephrosis with renal and ureteral calculous obstruction-solitary kidney;Abdominal tenderness;Vomiting;Bandemia;Urinary tract infection, site not specified Presentation: 12/04 19:23 Presenting complaint: Patient states: I am throwing up and my right side has been ed1 hurting. I have been having trouble peeing too. Transition of care: patient was not received from another setting of care. Onset of symptoms was December 04, 2018. Risk Assessment: Do you want to hurt yourself or someone else? Patient reports no desire to harm self or others. Initial Sepsis Screen: Does the patient meet any 2 criteria? No. Patient's initial sepsis screen is negative. Does the patient have a suspected source of infection? No. Patient's initial sepsis screen is negative. Care prior to arrival: None. 19:23 Method Of Arrival: Wheelchair ed1 19:23 Acuity: SKIP 2 ed1 Triage Assessment: 19:27 General: Appears uncomfortable, Behavior is calm, cooperative. Pain: Complains of pain ed1 in right flank Pain currently is 5 out of 10 on a pain scale. GI: Reports nausea, vomiting. Historical: - Allergies: 19:27 OPIOID ANALGESICS; ed1 19:27 Analog; ed1 19:27 PENICILLINS; ed1 - PMHx: 19:27 Bladder cancer; Papillary urothelial carcinoma; Born with ONE kidney; stroke- 04/2016; ed1 - PSHx: 19:27 heart bypass; Cholecystectomy; TURP; Hernia repair; ed1 - Immunization history:: Adult Immunizations up to date. - Social history:: Smoking status: Patient/guardian denies using tobacco. - Ebola Screening: : Patient negative for fever greater than or equal to 101.5 degrees Fahrenheit, and additional compatible Ebola Virus Disease symptoms Patient denies exposure to infectious person Patient denies travel to an Ebola-affected area in the 21 days before illness onset No symptoms or risks identified at this time. Screenin:00 Abuse screen: Denies threats or abuse. Nutritional screening: No deficits noted. ea Tuberculosis screening: No symptoms or risk factors identified. Fall Risk Assessment: 20:00 Reassessment:. General: Appears uncomfortable, Behavior is appropriate for age. Pain: ea Complains of pain in right lower quadrant and right upper quadrant and posterior aspect of right lateral abdomen and anterior aspect of right lateral abdomen. Neuro: Level of Consciousness is awake, alert, obeys commands, Oriented to person, place, time, situation. Cardiovascular: Patient's skin is warm and dry. Respiratory: Airway is patent Respiratory effort is even, unlabored, Respiratory pattern is regular, symmetrical. GI: Abdomen is non-distended, Bowel sounds present X 4 quads. Abd is soft and non tender X 4 quads. Derm: Skin is pink, warm \T\ dry. 21:16 Reassessment: Patient and/or family updated on plan of care and expected duration. Pain ea level reassessed. Patient is alert, oriented x 3, equal unlabored respirations, skin warm/dry/pink. Awaiting for lab results. 22:45 Reassessment: Patient and/or family updated on plan of care and expected duration. Pain ea level reassessed. Patient is alert, oriented x 3, equal unlabored respirations, skin warm/dry/pink. Dr. Alegria at bedside updating pt on plan of care. 23:10 Reassessment: Patient and/or family updated on plan of care and expected duration. Pain ea level reassessed. Pt resting with eyes closed, respirations even and unlabored. Chest expansions even and symmetrical. No s/s of pain or discomfort noted at this time. 23:38 Reassessment: Report given to receiving nurse on second floor. ea 23:46 Reassessment: Patient and/or family updated on plan of care and expected duration. Pain ea level reassessed. Patient is alert, oriented x 3, equal unlabored respirations, skin warm/dry/pink. Pt admitted to second floor. Pt left via stretcher per physics technician, pt accompanied by family. pt tolerating well. Denies pain and discomfort at this time. Vital Signs: 19:27 BP 128 / 86; Pulse 69; Resp 18; Temp 97.8; Pulse Ox 97% on R/A; Weight 96.62 kg; Height ed1 5 ft. 10 in. (177.80 cm); Pain 5/10; 20:15 BP 141 / 79; Pulse 61; Resp 19; Pulse Ox 99% ; ea 21:00 BP 143 / 63; Pulse 66; Resp 18; Temp 98.2; Pulse Ox 97% on R/A; ea 22:30 BP 135 / 68; Pulse 64; Resp 19; Pulse Ox 97% ; ea 23:11 BP 130 / 60; Pulse 67; Resp 18; Pulse Ox 95% on R/A; ea 23:45 BP 129 / 59; Pulse 60; Resp 19; Temp 98(O); Pulse Ox 99% ; ea 19:27 Body Mass Index 30.56 (96.62 kg, 177.80 cm) ed1 ED Course: 19:21 Patient arrived in ED. es 19:22 out of town, doctor is Private Physician. es 19:24 Triage completed. ed1 19:27 Arm band placed on right wrist. ed1 19:45 Jhon Miranda MD is Attending Physician. silvia 19:51 Belinda Dalton RN is Primary Nurse. ea 20:00 Patient has correct armband on for positive identification. Bed in low position. Call ea light in reach. Side rails up X2. 20:[address] via wheelchair. vm2 20:29 XRAY Chest (1 view) In Process Unspecified. EDMS 20:32 CT Stone Protocol In Process Unspecified. EDMS 20:32 CT completed. Patient tolerated procedure well. Patient moved back from CT. wv 21:46 Ronald Jackson MD is Hospitalizing Provider. silvia 22:15 Altman cath inserted, using sterile technique, 18 Fr., by tx, balloon inflated, to ea gravity drainage, urine specimen collected. 22:49 No provider procedures requiring assistance completed. Patient admitted, IV remains in ea place. Administered Medications: 20:30 Drug: Zofran 4 mg Route: IVP; Site: right antecubital; ea 21:14 Follow up: Response: No adverse reaction; Marked relief of symptoms; Nausea is decreasedea 20:47 Drug: fentaNYL (PF) 25 mcg Route: IVP; Site: right antecubital; ea 21:14 Follow up: Response: No adverse reaction; Pain is decreased ea 20:48 Drug: NS 0.9% 500 ml Route: IV; Rate: bolus; Site: right antecubital; ea 21:14 Follow up: Response: No adverse reaction; IV Status: Completed infusion; IV Intake: ea 500ml 20:55 Drug: Pepcid 20 mg Route: IVP; Site: right antecubital; ea 21:14 Follow up: Response: No adverse reaction ea 20:57 Drug: NS 0.9% 1000 ml Route: IV; Rate: 125 ml/hr; Site: right antecubital; ea 22:42 Follow up: Response: No adverse reaction; IV Status: Infusion continued upon admission ea 21:13 Drug: fentaNYL (PF) 25 mcg Route: IVP; Site: right antecubital; ea 22:38 Follow up: Response: No adverse reaction; Pain is decreased ea 22:39 Follow up: Response: No adverse reaction ea 21:45 Drug: Zofran 4 mg Route: IVP; Site: right antecubital; ea 22:41 Follow up: Response: No adverse reaction; Marked relief of symptoms ea 22:24 Drug: fentaNYL (PF) 25 mcg Route: IVP; Site: right antecubital; ea 22:40 Follow up: Response: No adverse reaction; Pain is decreased ea 22:29 Drug: Rocephin - (cefTRIAXone) 1 grams Route: IVPB; Infused Over: 30 mins; Site: right ea antecubital; 22:41 Follow up: Response: No adverse reaction; IV Status: Completed infusion ea Intake: 21:14 IV: 500ml; Total: 500ml. ea Output: 23:49 Urine: 250ml (Altman); Total: 250ml. ea Outcome: 21:49 Decision to Hospitalize by Provider. silvia 22:49 Instructed on the need for admit. ea 23:44 Admitted to Med/surg accompanied by nurse, via stretcher, room 229, with chart, Report ea called to Receiving nurse on second floor. 23:44 Condition: stable 23:50 Patient left the ED. ea Signatures: Dispatcher [employer] Jhon Zhao MD MD cha Salyer, Edna es Riggs, Erika, RN RN ed1 Rufus Crooks [place] 2 Belinda Dalton RN RN anna
[2018-12-04] MEDS ORDERED: CEFTRIAXONE/SWI 1gm 1 GM/10 ML SYR ONE (22:26)
--- NOTE | 2018-12-04 22:54 | P.HP ---
Certification for Inpatient Patient admitted to: Inpatient With expected LOS: >2 Midnights Practitioner: I am a practitioner with admitting privileges, knowledge of patient current condition, hospital course, and medical plan of care. Services: Services provided to patient in accordance with Admission requirements found in Title 42 Section 412.3 of the Code of Federal Regulations Patient History Date of Service: 12/04/18 Reason for admission: ureterolithiasis, hydronephrosis History of Present Illness: Mr Carmona is an 83 years old male with history of CAD, bladder cancer, congenital solitary kidney who came to ED complaining of RLQ pain, starting about 1300 today. It was associated with nausea and vomiting. He denied fever or chills. He also was having trouble to urinate since so. Lab work remarkable for WBC normal count, elevated creatinine and BUN. CT abd/pelvis remarkable for right ureteral stone 3 mm, leading with moderate hydronephrosis. No fever in ED. Allergies codeine Allergy (Verified 08/23/14 17:10) Nausea/Vomiting Penicillins Allergy (Verified 08/23/14 17:10) Shortness of breath Home medications list reviewed: Yes Home Medications: ALPRAZolam [Xanax*] 0.5 mg PO BEDTIME PRN 10/01/14 Multivitamin [Daily Vitamin] 1 each PO DAILY #30 tablet 10/03/14 Amiodarone HCl 100 mg PO DAILY 07/19/16 Atorvastatin Calcium [Lipitor*] 10 mg PO BEDTIME 07/19/16 Cetirizine HCl [All Day Allergy] 10 mg PO DAILY 07/19/16 Digoxin [Lanoxin*] 0.125 mg PO DAILY 07/19/16 Furosemide [Lasix*] 20 mg PO DAILY 07/19/16 Metoprolol Tartrate 12.5 mg PO BID 07/19/16 Rivaroxaban [Xarelto*] 15 mg PO DAILY 07/19/16 Cranberry Fruit [Cranberry] 400 mg PO BEDTIME 05/17/17 Famotidine [Pepcid*] 20 mg PO BEDTIME 05/17/17 L.acidoph,Paracasei, B.lactis [Probiotic] 1 each PO DAILY 05/17/17 Potassium Chloride [Klor-Con 10] 10 meq PO DAILY 05/17/17 Doxycycline Hyclate 100 mg PO BID #14 capsule 05/20/17 - Past Medical/Surgical History Diabetic: No -: Hypocholesterolemia -: Coronary artery disease -: Peripheral neuropathy affecting his lower extremities -: hx bladder CA -: CABG -: gallblader -: cholecystectomy - Family History Father Notes: none Mother -: Hypertension, Stroke - Social History Smoking Status: Former smoker Alcohol use: No CD- Drugs: No Caffeine use: No Place of Residence: Home Review of Systems 10-point ROS is otherwise unremarkable Physical Examination - Physical Exam General: Alert, In no apparent distress HEENT: Atraumatic, PERRLA, Mucous membr. moist/pink, EOMI, Sclerae nonicteric Neck: Supple, 2+ carotid pulse no bruit, No LAD, Without JVD or thyroid abnormality Respiratory: Clear to auscultation bilaterally, Normal air movement Cardiovascular: Normal S1 S2, No gallops Gastrointestinal: Normal bowel sounds, Tenderness (RLQ) Musculoskeletal: No tenderness Integumentary: No rashes Neurological: Normal speech, Normal strength at 5/5 x4 extr, Normal tone, Normal affect Lymphatics: No axilla or inguinal lymphadenopathy - Studies Laboratory Data (last 24 hrs) 12/04/18 20:10: PT 17.8 H, INR 1.53 12/04/18 20:10: Magnesium 2.5 H 12/04/18 20:10: Creatinine 1.34 H 12/04/18 20:10: WBC 6.2, Hgb 12.9 L, Hct 38.8 L, Plt Count 78 L 12/04/18 20:10: Sodium 141, Potassium 3.7, BUN 21 H, Creatinine 1.34 H, Glucose 104, Total Bilirubin 0.6, AST 12 L, ALT 13, Alkaline Phosphatase 84, Lipase 118 Assessment and Plan - Problems (Diagnosis) (1) CAD (coronary artery disease) Current Visit: Yes Status: Acute Qualifiers: Coronary Disease-Associated Artery/Lesion type: bypass graft [place] vs. transplanted heart: [place] heart Associated angina: without angina Qualified Code(s): I25.810 - Atherosclerosis of coronary artery bypass graft(s) without angina pectoris (2) Ureterolithiasis Current Visit: Yes Status: Acute (3) Hydronephrosis Current Visit: Yes Status: Acute Qualifiers: Hydronephrosis type: with ureteral calculous obstruction Qualified Code(s) : N13.2 - Hydronephrosis with renal and ureteral calculous obstruction (4) Hx of CABG Current Visit: No Status: Chronic - Plan Will admit the patient to the hospital, keep NPO, start IV fluids, pain medication, empiric antibiotics, Dr Leon was consulted, and he is planning to do Cystoscopy in AM. The patient is hemodynamically stable. - Advance Directives Does patient have a Living Will: No Does patient have a Durable POA for Healthcare: No - Code Status/Comfort Care Code Status Assessed: Yes Code Status: Full Code
[2018-12-04 23:03] LABS: Urine Blood 3+ (NEG); Urine Glucose NEGATIVE (NEG); Urine Protein 1+ (NEG); Urine Specific Gravity 1.015 (1.005-1.030)
[2018-12-05] MEDS ORDERED: NA CHLORIDE 0.9% 1,000 ML IV SCH (00:53)
[2018-12-05] MEDS ORDERED: ONDANSETRON 4 MG/2 ML VIAL IV PRN (00:53)
[2018-12-05] MEDS ORDERED: TRAMADOL HCL 50 MG TAB PO PRN (00:53)
[2018-12-05 01:55] VITALS: BMI 30.5
[2018-12-05] MEDS ORDERED: Ciprofloxacin 200mg IV 200 MG/100 ML IV.SOLN. IV SCH (02:00)
[2018-12-05 05:09] LABS: Absolute Lymphocytes (CBC) 0.6 K/uL (0.7-4.9); Absolute Monocytes 2.1 K/uL (0.1-1.3); Absolute Neutrophil 6.3 K/uL (1.8-8.0); Basophils % 0.4 % (0-1.3); Eosinophils % 0.1 % (0-4.4); Hematocrit 34.4 % (39.6-49.0); Lymphocytes % 6.5 % (15.3-44.8); MPV 8.9 fL (7.6-11.3); RBC Red Blood Cell Count 3.83 M/uL (4.33-5.43)
[2018-12-05 05:10] LABS: Monocytes % 23.3 % (3.3-12.3)
[2018-12-05 05:18] LABS: Potassium 4.2 mmol/L (3.5-5.1)
[2018-12-05] MEDS ORDERED: Ringers Lactate 1,000 ML IV ONE (06:46)
--- NOTE | 2018-12-05 06:47 | EKG ---
Test Date: 2018-12-04 Test Time: 21:02:31 Promotion Specialist: CHARLIE MEASUREMENT RESULTS: Intervals: Rate: 66 AR: 196 QRSD: 136 QT: 448 QTc: 469 [place]: P: 51 AR: 196 QRS: -49 T: 93 INTERPRETIVE STATEMENTS: Normal sinus rhythm Left axis deviation Nonspecific intraventricular block Cannot rule out Anterior infarct, age undetermined Abnormal ECG Compared to ECG 02/19/2018 21:19:58 No significant changes Electronically Signed On 12-05-18 06:46:43 CDT by Phillip Adams
[2018-12-05] MEDS ORDERED: PROPOFOL 200 MG/20 ML VIAL IV ONE (07:11)
[2018-12-05] MEDS ORDERED: Phenylephrine HCl 10 MG/ML 1 ML VIAL ONE (07:12)
[2018-12-05] MEDS ORDERED: LIDOCAINE 1% MPF 5 ML VIAL ONE (07:12)
[2018-12-05] MEDS ORDERED: GLYCOPYRROLATE 0.2 MG/ML SYR ONE (07:30)
[2018-12-05] MEDS ORDERED: ATROPINE SULF 1 MG/10 ML SYR IV ONE (07:36)
[2018-12-05] MEDS ORDERED: MORPHINE 10 MG/ML VIAL ONE (07:47)
--- NOTE | 2018-12-05 08:02 | CON ---
History Of Present Illness: An 83-year-old gentleman with solitary right kidney presents with right urolithiasis stone in the upper right ureter just above the iliac vessel. It is about 3-4 mm stone w ith minimal hydronephrosis. He has a history of right lower quadrant pain associated with nausea and vomiting. Denied fever or chills. He was making less urine output, so he was made n.p.o. and sched uled to have a stent placed as soon as possible in the OR in the morning. Apparently, has a history of bladder cancer and noted to have a Port-A-Cath, may have had some chemo for something, he is not r eally sure. His memory is poor. He is a poor historian. We have tried to get in touch with family members, but no answer so far. Nurse Phyllis in the recovery room tried to call family members sev eral times. Allergies: TO CODEINE, AND PENICILLIN CAUSES SHORTNESS OF BREATH. CODEINE CAUSES NAUSEA AND VOMITIN G. Home Medications: Xanax, multivitamin, amiodarone, Lipitor, sertraline, digoxin, Lasix, metoprolol, Xarelto, cranberry, famotidine, probiotic, potassium, doxycycline. Past History: Hypercholesterolemia, coronary artery disease, peripheral neuropathy, history of bladd er cancer, CABG, gallbladder, cholecystectomy. Family History: Father and mother had hypertension, stroke. Social History: Former smoker. No alcohol use. No drug use. No caffeine use. Resides at home. Review of Systems: Ten-point review of systems, otherwise unremarkable. Physical Examination: General: Afebrile. Appeared stable. Vital Signs: 98.5, 66, 19, 93/53, saturations 95% on room air. HEENT: Atraumatic, normocephalic. Neck: Supple. Respiratory: Clear bilaterally. Cardiovascular: Normal S1, S2. Gastrointestinal: Normal bowel sounds. Musculoskeletal: No tenderness. Skin: No rashes. Neurological: Seems very forgetful and having signs of dementia, how long here; however, he did say he signs for himself. Laboratory Data: PT 17.8, slightly elevated, INR 1.5. Magnesium 2.5, creatinine 1.3. White count 6 .2, hemoglobin 12.9 and hematocrit 38.8, platelet count 78. Sodium 141, potassium 3.7, BUN 21, creat inine 1.3, glucose 104, bilirubin 0.6, AST 12, ALT 13, alkaline phosphatase 84, lipase 118. Assessment: Solitary right kidney with urolithiasis causing hydronephrosis, decreased urine output. Recommendation is for cystoscopy and stent. The patient was given all the general information, alte rnatives, and risks. He was not coerced. Informed consent was obtained with this by nurse, Patti bowling Coronary artery disease status post coronary artery bypass grafting and history of bladder cancer . He has a Port-A-Cath, unsure for why he has that. We will try to get hold of family members to alis apontere out what is going here. He also had a CT scan showing a 2 cm noncalcified pulmonary nodule in t he right lung base posteriorly. Recommended a PET scan and CT scan. The medical doctors will order these. MICHEAL/NATALIO Voice ID: [id number] Report ID: [id number]
--- NOTE | 2018-12-05 08:32 | OP ---
Surgeon: Leland Leon MD Anesthesiologist: Dr. Mora. Preoperative Diagnosis: 3-4 mm right mid ureteral stone. Postoperative Diagnosis: 3-4 mm right mid ureteral stone. The stone possibly migrated to the lower ureter. Procedure Performed: Cystoscopy, right retrograde pyelogram, insertion of double-J stent 6 x 28 cm. String left attached in the bladder. Findings: There was some hydroureter down to the right lower ureter, but a definite stone was not se en. Also, the bladder was clear for any tumors. The prostatic urethra was wide open, status post TU R. Anesthesia: General. Estimated Blood Loss: Minimal, less than 5 cc. Specimen: None. Complications: None. Drains: A stent as above. Indications: A pleasant 83-year-old gentleman with solitary right kidney, found to have a right luan trigone in the bladder with 3-4 mm urolithiasis in the right mid ureter caused some hydronephrosis a nd decreased urine output. He was given all general information, alternatives, risks proceeding with the stent placement. Due to the fact that he has a solitary kidney, he will not be able to maintain being obstructed. Interestingly, his creatinine has been stable in the last few hours and he was st ill making urine output at the time of surgery, so he only had a partial obstruction. Procedure In Detail: His leg was placed in supine lithotomy position. After he was prepped and drap ed after general anesthesia was administered, we entered the urethra with a 21-Gibraltarian and 30-degree l ens. The urethra appeared normal. No lesions. The prostatic urethra was wide open from previous TU R. Bladder was clear of any tumors. Was scoped with the 30 and 70 degree lens. Pictures were taken . He had a little trabeculation on the dome of the bladder. A tiny bladder diverticulum, more like a tiny cellule on the dome of the bladder. He had a right luan-trigone. The orifice was found later ally and cannulated easily with a 5-Gibraltarian ureteral catheter and contrast was injected showing hydrou reter down to the lower ureter, but no definite stone was seen. I went ahead and placed a wire in an d placed a standard stent after the ureter was measured. The patient tolerated the procedure well, w ent to recovery room in stable condition. Bladder was drained. He will be able to go home later to ay. Follow up in about a week or so. MICHEAL/NATALIO Voice ID: [id number] Report ID: [id number]
--- NOTE | 2018-12-05 09:16 | RAD REPORT ---
EXAM DESCRIPTION: RAD - Cystography - 12/05/2018 8:13 am CLINICAL HISTORY: ICD N 20.0 FINDINGS: 10 fluoroscopic spot images obtained. Fluoroscopy time 0.41 minutes Right ureter was cannulated and contrast administered. Subsequently a right ureteral stent was placed . Examination was performed by
--- NOTE | 2018-12-05 10:27 | P.DS ---
Admission Date: 12/04/18 Discharge Date: 12/05/18 Primary Care Provider: unknown Disposition: ROUTINE DISCHARGE Discharge Condition: GOOD Reason for Admission: ureterolithiasis, hydronephrosis Consultations: Urology-Dr. Leon Procedures: CT scan: FINDINGS: Emphysematous changes are present in both lung bases. 20 x 20 mm noncalcified pleural abutting pulmonary nodule is seen in the right lower lobe posteriorly. Imaged portions of the liver and spleen show no suspicious findings on non- contrast imaging.Cholecystectomy clips. The pancreas and adrenal glands are normal. No pathologic lymphadenopathy in the abdomen or pelvis. Moderate right hydronephrosis and hydroureter is present caused by a 3 mm stone in the mid right ureter. The left kidney appears absent. Urinary bladder is decompressed incompletely evaluated. No bowel obstruction, free air, free fluid or abscess. Moderate stool throughout the colon. Moderate lumbosacral degenerative changes. IMPRESSION: Moderate right hydronephrosis and proximal hydroureter is present caused by a 3 mm stone mid right ureter. The patient's left kidney is absent. 20 mm noncalcified pleural abutting pulmonary nodule in the right lung base posteriorly. This may be neoplastic in etiology and follow-up PET-CT evaluation be recommended. Surgery: Surgeon: Leland Leon MD Anesthesiologist: Dr. Mora. Preoperative Diagnosis: 3-4 mm right mid ureteral stone. Postoperative Diagnosis: 3-4 mm right mid ureteral stone. The stone possibly migrated to the lower ureter. Procedure Performed: Cystoscopy, right retrograde pyelogram, insertion of double-J stent 6 x 28 cm. String left attached in the bladder. Findings: There was some hydroureter down to the right lower ureter, but a definite stone was not seen. Also, the bladder was clear for any tumors. The prostatic urethra was wide open, status post TUR. Anesthesia: General. Estimated Blood Loss: Minimal, less than 5 cc. Specimen: None. Complications: None. Drains: A stent as above. Medical Problem List: Nausea, vomiting with urinary retention secondary to moderate right hydronephrosis and proximal hydroureter cause by 3 mm stone to the mid right ureter status post cystoscopy, right retrograde pyelogram, insertion of double- J stent 6 x 28 cm Acute renal insufficiency secondary to above History of bladder cancer, patient self caths CAD with prior CABG Hypertension 20 mm noncalcified pleural abutting pulmonary nodule to the right lung base likely neoplastic History of solitary kidney Anemia likely of chronic disease with chronic thrombocytopenia Chronic atrial fibrillation on chronic anti coagulation therapy Hyperlipidemia Brief History of Present Illness: 83-year-old male with history of solitary right kidney, bladder cancer. Patient presented with nausea and vomiting and urinary retention. Patient found to have right moderate hydronephrosis and proximal hydroureter cause by 3 mm stone to the mid right ureter. Patient was admitted for treatment. Hospital Course: Patient presented with nausea, vomiting and urinary retention. Patient found to have right hydronephrosis and hydroureter secondary to 3 mm ureteral stone. Urology was consulted. Patient had cystoscopy, right retrograde pyelogram and insertion of double-J stent 6 x 28 cm. Patient tolerated the procedure. At discharge patient will follow up with urology within 1 week. At discharge urology provided prescriptions for Macrodantin 50 mg daily for 14 days and Tylenol #3 one pill three times a day as needed for pain. Patient is to have the -KUB prior to his visit with urology. Prior to discharge patient had bladder scan done. Straight cath was required. At discharge patient can continue to self cath as needed. He needs to be very careful not to pull on stent string. Patient with history of bladder cancer and solitary right kidney. This can be followed up by Urology. CT scan showed a 20 mm noncalcified pleural abutting pulmonary nodule to the right lung base which is likely neoplastic. Patient will need to have follow up likely with CT PET scan in the near future to further evaluate. Case discussed at length with patient. Patient has decided in not to pursue treatment. Patient plans to follow up with oncology. Patient with underlying CAD with prior CABG, chronic diastolic CHF, hyperlipidemia, chronic atrial fibrillation on chronic anti coagulation therapy , and hypertension. Blood pressure was decreased. Patient given IV fluids. This improved. At discharge patient will continue with medications-amiodarone 100 mg daily, Lipitor 20 mg daily, Lasix 20 mg daily, potassium supplementation daily, metoprolol 12.5 mg 1 pill every bedtime daily, and Xarelto 7.5 mg daily. Recommend to monitor blood pressures daily. Recommend to hold medication if blood pressure systolic less than 110. This can be followed up by his PCP. Patient plans to follow up with Cardiology soon. Patient in process of re- establishing care with another physician. Patient had acute renal insufficiency likely related to above. Recommend to recheck lab-BMP in 1 week to monitor his progress. Patient with anemia of chronic disease and chronic thrombocytopenia. Recommend to recheck CBC in 1 week to monitor his progress. Patient may require further workup to further address. Advanced directives addressed prior to discharge. Patient wishes to be DNR. Vital Signs/Physical Exam: Temp Pulse Resp BP Pulse Ox 98.9 F 88 16 93/53 L 90 L 12/05/18 08:11 12/05/18 08:11 12/05/18 08:11 12/05/18 08:11 12/05/18 08:00 General: Alert, In no apparent distress, Oriented x3, Cooperative HEENT: Atraumatic Neck: Supple Respiratory: Clear to auscultation bilaterally, Normal air movement Cardiovascular: Normal pulses, Regular rate/rhythm Gastrointestinal: Normal bowel sounds, Soft and benign, Non-distended, No tenderness, No masses, No rebound, No guarding Musculoskeletal: No erythema, No tenderness, No warmth Integumentary: No tenderness/swelling, No erythema, No warmth, No cyanosis Neurological: Normal speech, Normal strength at 5/5 x4 extr, Normal tone, Normal affect Laboratory Data at Discharge: WBC 9.0 K/uL (4.3-10.9) D 12/05/18 04:53 Hgb 11.8 g/dL (13.6-17.9) L 12/05/18 04:53 Hct 34.4 % (39.6-49.0) L 12/05/18 04:53 Plt Count 75 K/uL (152-406) L 12/05/18 04:53 PT 17.8 SECONDS (9.5-12.5) H 12/04/18 20:10 INR 1.53 12/04/18 20:10 Sodium 144 mmol/L (136-145) 12/05/18 04:53 Potassium 4.2 mmol/L (3.5-5.1) 12/05/18 04:53 BUN 22 mg/dL (7-18) H 12/05/18 04:53 Creatinine 1.25 mg/dL (0.55-1.3) 12/05/18 04:53 Glucose 108 mg/dL (74-106) H 12/05/18 04:53 Magnesium 2.5 mg/dL (1.8-2.4) H 12/04/18 20:10 Total Bilirubin 0.6 mg/dL (0.2-1.0) 12/04/18 20:10 AST 12 U/L (15-37) L 12/04/18 20:10 ALT 13 U/L (12-78) 12/04/18 20:10 Alkaline Phosphatase 84 U/L (45-117) 12/04/18 20:10 Lipase 118 U/L (73-393) 12/04/18 20:10 Home Medications: ALPRAZolam [Xanax*] 0.5 mg PO BEDTIME PRN 10/01/14 Amiodarone HCl 100 mg PO DAILY 07/19/16 Atorvastatin Calcium [Lipitor*] 20 mg PO BEDTIME 07/19/16 Furosemide [Lasix*] 20 mg PO DAILY 07/19/16 Rivaroxaban [Xarelto*] 7.5 mg PO BEDTIME 07/19/16 Cranberry Fruit [Cranberry] 400 mg PO BEDTIME 05/17/17 Famotidine [Pepcid*] 20 mg PO BEDTIME 05/17/17 L.acidoph,Paracasei, B.lactis [Probiotic] 1 each PO DAILY 05/17/17 Potassium Chloride [Klor-Con 10] 10 meq PO DAILY 05/17/17 Loratadine 1 cap PO DAILY 12/05/18 Metoprolol Tartrate 12.5 mg PO BEDTIME #30 tablet 12/05/18 New Medications: Metoprolol Tartrate 12.5 mg PO BEDTIME #30 tablet Patient Discharge Instructions: 1. Recommend to follow up with his PCP in 1 week to follow up this hospitalization. 2. Patient presented with nausea, vomiting and urinary retention. Patient found to have right hydronephrosis and hydroureter secondary to 3 mm ureteral stone. Urology was consulted. Patient had cystoscopy, right retrograde pyelogram and insertion of double-J stent 6 x 28 cm. Patient tolerated the procedure. At discharge patient will follow up with urology within 1 week. At discharge urology provided prescriptions for Macrodantin 50 mg daily for 14 days and Tylenol #3 one pill three times a day as needed for pain. Patient is to have the-KUB prior to his visit with urology. 3. Patient with history of bladder cancer and solitary right kidney. This can be followed up by Urology. CT scan showed a 20 mm noncalcified pleural abutting pulmonary nodule to the right lung base which is likely neoplastic. Patient will need to have follow up likely with CT PET scan in the near future to further evaluate. Patient is seen by oncology. Patient plans to follow up with oncology. Patient also has decided not to pursue treatment. 4. Patient with underlying CAD with prior CABG, chronic diastolic CHF, hyperlipidemia, chronic atrial fibrillation on chronic anti coagulation therapy, and hypertension. Blood pressure was decreased. Patient given IV fluids. This improved. Patient reports blood pressure at home ranges 80s to 90 systolic. His blood pressure medication was decreased to metoprolol 12.5 mg at bedtime. He is to hold blood pressure medication if systolic less than 110. At discharge patient will continue with medications-amiodarone 100 mg daily, Lipitor 20 mg daily, Lasix 20 mg daily, potassium supplementation daily, metoprolol 12.5 mg 1 pill every bedtime, and Xarelto 7.5 mg daily. Patient plans to reestablish care with Cardiology soon. 5. Patient had acute renal insufficiency likely related to above. Recommend to recheck lab-BMP in 1 week to monitor his progress. 6. Patient with anemia of chronic disease and chronic thrombocytopenia. Recommend to recheck CBC in 1 week to monitor his progress. Patient may require further workup to further address. Diet: AHA Activity: Fall precautions Time spent managing pt's care (in minutes): 55
[2018-12-05] MEDS ORDERED: ALPRAZOLAM 0.5 MG TABLET PO PRN (10:45)
[2018-12-05] MEDS: NA CHLORIDE 0.9% 250 ML IV PRN ×2 (12:03→12:30)
[2018-12-05 12:47] VITALS: O2SAT 99
[2018-12-05] MEDS ORDERED: NA CHLORIDE 0.9% 250 ML IV PRN (16:44)
[2018-12-05] MEDS ORDERED: MIDODRINE HCL 5 MG TABLET PO ONE (16:55)
[2018-12-05 17:20] VITALS: TEMP 97.8
[2018-12-05 18:07] VITALS: BP 118/66
[2018-12-05] MEDS ORDERED: METOPROLOL TAR 25 MG TAB PO SCH (21:00)
[2018-12-05] MEDS ORDERED: FAMOTIDINE 20 MG TAB PO SCH (21:00)
[2018-12-05] MEDS ORDERED: ATORVASTATIN 20 MG TAB PO SCH (21:00)
[2018-12-05] MEDS ORDERED: RIVAROXABAN 15 MG TABLET PO SCH (21:00)
[2018-12-05] MEDS ORDERED: CRANBERRY FRUIT EXTRACT 200 MG CAP PO SCH (21:00)
[2018-12-06] MEDS ORDERED: LACTOBACILLUS/ACIDOPHILUS TAB PO SCH (09:00)
[2018-12-06] MEDS ORDERED: LORATADINE 10 MG TAB PO SCH (09:00)
[2018-12-06] MEDS ORDERED: AMIODARONE HCL 200 MG TAB PO SCH (09:00)
== END 2018-12-05 19:45 | disposition home or self-care (01) ==
LOC: ER 19:19 → INTOOBSV 23:00 → ERHOLD 23:00 → 2ND 23:28
PROVIDERS: ADMIT Internal Medicine; ATTEND Internal Medicine
PROC: 0T768DZ Dilation of Right Ureter with Intraluminal Device, Via Natural or Artificial Opening Endoscopic (ICD-10-PCS; principal; 2018-12-05 07:00)
DX: N13.2 Hydronephrosis with renal and ureteral calculous obstruction (principal); R33.9 Retention of urine, unspecified; N28.9 Disorder of kidney and ureter, unspecified; N20.1 Calculus of ureter; I25.10 Atherosclerotic heart disease of native coronary artery without angina pectoris; R91.1 Solitary pulmonary nodule; I10 Essential (primary) hypertension; Q60.0 Renal agenesis, unilateral; I48.2 Chronic atrial fibrillation; Z85.51 Personal history of malignant neoplasm of bladder; Z79.01 Long term (current) use of anticoagulants; Z95.1 Presence of aortocoronary bypass graft; D64.9 Anemia, unspecified; D69.6 Thrombocytopenia, unspecified; E78.5 Hyperlipidemia, unspecified; I11.0 Hypertensive heart disease with heart failure; I50.32 Chronic diastolic (congestive) heart failure; Z66 Do not resuscitate; Z88.0 Allergy status to penicillin
CPT/HCPCS: 96361; 93005; 87088; 85025 ×2; 87086; 80048 ×2; 36415; 83735; 85610; 80076; 87077; 87186; 81003; 84484; 83690; 83880; 76377; 74176; 71045; 51600; 74430; 97162; 94760; 51702; 96375; 96374; 99285; 52332; J2704; J2370; J3010; J0744; J0696; J7030; J2405 ×2; G0378 ×2

== ENCOUNTER 2019-05-11 11:38 | Inpatient (IN) | payer OTHER ==
[2019-05-11] MEDS ORDERED: NA CHLORIDE 0.9% 2,000 ML ONE (11:48)
[2019-05-11] MEDS ORDERED: CEFEPIME/SWI 1gm 10 ML IV ONE (12:15)
[2019-05-11] MEDS ORDERED: VANCOMYCIN/NS 1 gm 1 GM/250 ML BAG IV ONE (12:15)
[2019-05-11 12:24] LABS: Absolute Lymphocytes (CBC) 0.2 K/uL (0.7-4.9); Basophils % 0.4 % (0-1.3); Hematocrit 27.1 % (39.6-49.0); Lymphocytes % 2.1 % (15.3-44.8); MPV 8.8 fL (7.6-11.3); RBC Red Blood Cell Count 3.08 M/uL (4.33-5.43)
[2019-05-11 12:25] LABS: Protime INR 1.33
[2019-05-11 12:28] LABS: Albumin 3.2 g/dL (3.4-5.0); Bilirubin Direct 0.4 mg/dL (0-0.2); Bilirubin Total 1.1 mg/dL (0.2-1.0); CKMB Creatine Kinase MB 1.1 ng/mL (0.3-3.6); Potassium 3.4 mmol/L (3.5-5.1); Protein, Total 6.7 g/dL (6.4-8.2); Troponin (Emerg Dept Use Only) 0.03 ng/mL (0.0-0.045)
--- NOTE | 2019-05-11 12:42 | RAD REPORT ---
EXAM DESCRIPTION: RAD - Chest Single View - 05/11/2019 12:36 pm CLINICAL HISTORY: Cough, fever, altered mental status COMPARISON: December 04, 2018 TECHNIQUE: AP portable chest image was obtained 1215 hours . FINDINGS: Low lung volumes are noted. No focal consolidation to suspect bacterial pneumonia. A mild failure or volume overload could be masked in this setting. Heart size and vasculature are prominent. Left-sided Port-A-Cath remains in place. Sternotomy wires and CABG surgical changes noted. Trachea is midline. No measurable pleural effusion and no pneumothorax. No acute bony abnormality se en. No acute aortic findings suspected. IMPRESSION: Shallow inspiration film shows no peripheral mass or consolidation. Heart, vasculature and lung markings are all more prominent. This is probably the affects of shallow inspiration. A mild failure or volume overload cannot be excluded.
--- NOTE | 2019-05-11 13:04 | RAD REPORT ---
EXAM DESCRIPTION: CT - Head Brain Wo Cont - 05/11/2019 12:53 pm CLINICAL HISTORY: CONFUSED Headache, drowsiness COMPARISON: No comparisons TECHNIQUE: All CT scans are performed using dose optimization technique as appropriate and may inclu de automated exposure control or mA/KV adjustment according to patient size. FINDINGS: No intracranial hemorrhage, hydrocephalus or extra-axial fluid collection.Advanced general ized brain atrophy is present with advanced periventricular and deep white matter chronic microvascul ar ischemic changes.No areas of brain edema or evidence of midline shift. The paranasal sinuses and mastoids are clear. The calvarium is intact. IMPRESSION: No acute intracranial abnormality.
[2019-05-11 13:38] LABS: Blood Morphology Comment NOT SEEN (NOT SEEN); Platelet Estimate DECR; Platelets, Giant PRESENT; Urine White Blood Cell Casts OK
[2019-05-11] MEDS ORDERED: NA CHLORIDE 0.9% 1,000 ML ONE (14:03)
[2019-05-11] MEDS ORDERED: NA CHLORIDE 0.9% 250 ML ONE (15:28)
[2019-05-11] MEDS ORDERED: PANTOPRAZOLE 40 MG INJ ONE (15:28)
[2019-05-11] MEDS ORDERED: NA CHLORIDE 0.9% 500 ML ONE (15:30)
[2019-05-11] MEDS ORDERED: NOREPINEPHRINE 4mg/D5W 250mL 4 MG/250 ML BAG IV ONE (15:30)
[2019-05-11 15:32] LABS: Urine Bacteria LOADED /HPF (NONE SEEN); Urine Culture Reflex Order REFLEXED; Urine RBC >50 /HPF (NONE SEEN)
[2019-05-11 15:49] LABS: Urine Blood 2+ (NEG); Urine Glucose NEGATIVE (NEG); Urine Protein 2+ (NEG); Urine Specific Gravity 1.015 (1.005-1.030); Urine pH 8.5 (5.0-7.0)
[2019-05-11] MEDS: PANTOPRAZOLE INJ 80 MG in NA CHLORIDE 0.9% 250 ML IV SCH (16:00)
--- NOTE | 2019-05-11 16:26 | EDPHYS ---
Physician Documentation [facility] Name: Ernie Carmona Age: 83 yrs Sex: Male : 1935 Arrival Date: 05/11/2019 Time: 11:43 Bed 4 Private MD: ED Physician Howard Greene HPI: 05/11 16:15 This 83 yrs old Male presents to ER via EMS with complaints of Fever, Altered ma2 Mental Status. 16:15 The patient reports fever, not measured (subjective). Onset: The symptoms/episode ma2 began/occurred gradually, 1 week(s) ago. Historical: - Allergies: 11:53 Analog; ss 11:53 OPIOID ANALGESICS; ss 11:53 PENICILLINS; ss - Home Meds: 11:53 Alprazolam Oral [Active]; metoprolol tartrate 25 mg Oral tab 0.5 tab 2 times per day ss [Active]; furosemide 20 mg Oral tab 1 tab once daily [Active]; atorvastatin 10 mg oral tab 1 tab once daily [Active]; amiodarone 100 mg Oral tab 1 tab once daily [Active]; Xarelto 15 mg oral tab 0.5 tab daily [Active]; montelukast 10 mg oral tab 1 tab once daily [Active]; potassium chloride 10 mEq Oral TbER 1 tab once daily [Active]; - PMHx: 11:53 Bladder cancer; Born with ONE kidney; Papillary urothelial carcinoma; CVA; ss - PSHx: 11:53 CABG; TURP; Cholecystectomy; Hernia repair; ss - Immunization history:: Adult Immunizations unknown. - Social history:: Patient/guardian denies using alcohol, street drugs, The patient lives with family, Smoking status: Patient/guardian denies using tobacco. - Ebola Screening: : Patient denies exposure to infectious person Patient denies travel to an Ebola-affected area in the 21 days before illness onset. - Family history:: not pertinent. ROS: 16:16 Constitutional: Negative for fever, chills, and weight loss, Cardiovascular: Negative ma2 for chest pain, palpitations, and edema, Respiratory: Negative for shortness of breath, cough, wheezing, and pleuritic chest pain, Abdomen/GI: Negative for abdominal pain, nausea, diarrhea, and constipation. Exam: 16:16 Constitutional: This is a well developed, well nourished patient who is awake, alert, ma2 and in no acute distress. Head/Face: Normocephalic, atraumatic. Neck: Trachea midline, no thyromegaly or masses palpated, and no cervical lymphadenopathy. Supple, full range of motion without nuchal rigidity, or vertebral point tenderness. No Meningismus. Chest/axilla: Normal chest wall appearance and motion. Nontender with no deformity. No lesions are appreciated. Cardiovascular: Regular rate and rhythm with a normal S1 and S2. No gallops, murmurs, or rubs. Normal PMI, no JVD. No pulse deficits. Respiratory: Lungs have equal breath sounds bilaterally, clear to auscultation and percussion. No rales, rhonchi or wheezes noted. No increased work of breathing, no retractions or nasal flaring. Abdomen/GI: Soft, non-tender, with normal bowel sounds. No distension or tympany. No guarding or rebound. No evidence of tenderness throughout. Skin: Warm, dry with normal turgor. Normal color with no rashes, no lesions, and no evidence of cellulitis. MS/ Extremity: Pulses equal, no cyanosis. Neurovascular intact. Full, normal range of motion. 16:16 Neuro: Awake and alert, GCS 15, oriented to person, place, time, and situation. ma2 Cranial nerves II-XII grossly intact. Motor strength 5/5 in all extremities. Sensory grossly intact. Cerebellar exam normal. Normal gait. Vital Signs: 11:45 BP 59 / 47; Pulse 93; Resp 32; Pulse Ox 88% on R/A; sv 11:48 BP 66 / 45; sv 11:49 Temp 97.9(O); jb1 12:00 BP 75 / 45; Pulse 77; Resp 29; Pulse Ox 100% on 2 lpm NC; sv 12:16 Weight 74.84 kg; sv 12:30 BP 88 / 44; Pulse 78; Resp 28; Pulse Ox 100% on 2 lpm NC; sv 13:00 BP 78 / 44; Pulse 76; Resp 28; Pulse Ox 100% on 2 lpm NC; sv 13:45 BP 76 / 40; Pulse 76; Resp 26; Pulse Ox 97% on 2 lpm NC; sv 14:00 BP 67 / 50; Pulse 78; Resp 26; Pulse Ox 99% on 2 lpm NC; rv 14:30 BP 71 / 40; Pulse 78; Resp 27; Pulse Ox 98% on 2 lpm NC; rv 15:00 BP 69 / 45; Pulse 75; Resp 27; Pulse Ox 100% on 2 lpm NC; rv 15:30 BP 67 / 53; Pulse 73; Resp 23; Pulse Ox 100% on 2 lpm NC; rv 16:18 BP 91 / 50; Pulse 69; Resp 19; Pulse Ox 100% on 2 lpm NC; rv 17:00 BP 99 / 72; Pulse 66; Resp 19; Pulse Ox 98% on 2 lpm NC; rv 17:30 BP 109 / 48; Pulse 64; Resp 18; Pulse Ox 98% on 2 lpm NC; rv 18:00 BP 105 / 50; Pulse 63; Resp 21; Pulse Ox 99% on 2 lpm NC; rv 18:30 BP 105 / 51; Pulse 62; Resp 21; Temp 98.7; Pulse Ox 99% on 2 lpm NC; rv 19:00 BP 111 / 47; Pulse 59; Resp 21; Temp 98.7; Pulse Ox 100% ; rv 11:45 Placed on O2 \T\ 2L per NC. O2 sat up to 100%. sv Procedures: 16:16 Central Line: the site was prepped with in sterile fashion, a triple lumen catheter was ma2 inserted, in the right femoral vein, in 1 attempts. placement was verified, by blood return, the site was dressed with Tegaderm, the patient tolerated the procedure, well. MDM: 11:46 Patient medically screened. ma2 16:16 Differential diagnosis: viral Infection, bacterial infection, pneumonia UTI, patient ma2 has bladder cancer, dnr, here with septic shock and UTI, he received antibiotics.. he endorsed bleeding via rectum for 4 days that is on/off, he never had gi bleed before and had normal colonoscopy last year, hb is 9, he does not have active bleeding now, central line placed by me for septic shock received full 30ml/kg ns resussitation and still hypotensive, i discussed need for colonoscope with dr. higgins and he will see him, his hypotension is unlikely d/t gi bleeding as his hb is 9 and no active bleeding and has elevated temp to 102 documented today by ems, which suggest septic shock, i paged dr. larios no reply yet, will admit to icu. 16:16 Data reviewed: vital signs, nurses notes. Counseling: I had a detailed discussion with ma2 the patient and/or guardian regarding: the historical points, exam findings, and any diagnostic results supporting the discharge/admit diagnosis, the need for outpatient follow up, the need for further work-up and treatment in the hospital. Response to treatment: the patient's symptoms have mildly improved after treatment, the patient's symptoms have markedly improved after treatment. 05/11 11:48 Order name: Basic Metabolic Panel; Complete Time: 12:46 ma2 05/11 11:48 Order name: Blood Culture Adult (2) ma2 05/11 11:48 Order name: CBC with Diff; Complete Time: 13:53 ma2 05/11 11:48 Order name: Ckmb; Complete Time: 12:46 ma2 05/11 11:48 Order name: CPK; Complete Time: 12:46 ma2 05/11 11:48 Order name: Lactate; Complete Time: 12:46 ma2 05/11 11:48 Order name: LFT's; Complete Time: 12:46 ma2 05/11 11:48 Order name: Lipase; Complete Time: 12:46 ma2 05/11 11:48 Order name: Procalcitonin; Complete Time: 13:09 ma2 05/11 11:48 Order name: Protime (+inr); Complete Time: 12:46 ma2 05/11 11:48 Order name: Ptt, Activated; Complete Time: 12:46 ma2 05/11 11:48 Order name: Troponin (emerg Dept Use Only); Complete Time: 12:46 ma2 05/11 11:48 Order name: Urine Microscopic Only; Complete Time: 15:33 ma2 05/11 11:54 Order name: Type And Screen ss 05/11 11:48 Order name: Chest Single View XRAY; Complete Time: 12:46 ma2 05/11 11:48 Order name: Accucheck; Complete Time: 12:17 ma2 05/11 11:48 Order name: Cardiac monitoring; Complete Time: 12:17 ma2 05/11 11:48 Order name: CT Head Brain wo Cont; Complete Time: 13:09 ma2 05/11 13:39 Order name: CBC Smear Scan; Complete Time: 13:53 EDMS 05/11 14:32 Order name: Urine Dipstick--Ancillary (enter results); Complete Time: 16:16 bd 05/11 15:33 Order name: Urine Culture EDMS 05/11 16:05 Order name: Lactate Sepsis 2 HR Follow-up; Complete Time: 16:16 EDMS 05/11 16:05 Order name: EKG Electrocardiogram; Complete Time: 16:08 EDMS 05/11 11:48 Order name: EKG - Nurse/Tech; Complete Time: 12:17 ma2 05/11 11:48 Order name: IV Saline Lock - Large Bore; Complete Time: 12:18 ma2 05/11 11:48 Order name: Labs collected and sent; Complete Time: 12:18 ma2 05/11 11:48 Order name: O2 Per Protocol; Complete Time: 12:18 ma2 05/11 11:48 Order name: O2 Sat Monitoring; Complete Time: 12:18 ma2 05/11 11:48 Order name: Urine Dipstick-Ancillary (obtain specimen); Complete Time: 16:21 ma2 05/11 15:07 Order name: Central Line Kit; Complete Time: 16:16 ma2 Administered Medications: 11:48 Drug: NS 0.9% (30 ml/kg) 30 ml/kg Route: IV; Rate: bolus; Site: right forearm; sv 13:15 Follow up: Response: No adverse reaction; IV Status: Completed infusion; IV Intake: sv 2245ml 16:21 Follow up: IV Status: Completed infusion; IV Intake: 2200ml rv 12:16 CANCELLED (Physician Discretion): Acetaminophen 1000 mg PO once sv 12:22 Drug: Cefepime 1 grams Route: IVPB; Rate: 200 ml/hr; Infused Over: 30 mins; Site: right jl7 forearm; 12:25 Follow up: Response: No adverse reaction; IV Status: Completed infusion; administered jl7 per protocol 12:29 Drug: vancoMYCIN 1 grams Route: IVPB; Infused Over: 2 hrs; Site: right forearm; jl7 14:38 Follow up: IV Status: Completed infusion rv 15:40 Drug: Pantoprazole 80 mg Route: IVP; Site: right forearm; jl7 16:17 Follow up: Response: No adverse reaction rv 15:40 Drug: Norepinephrine (4 mg/250 mL D5W) 4 mcg/min Route: IV; Rate: calculated rate; jl7 Site: right forearm; 19:31 Follow up: IV Status: Infusion continued upon admission rv 16:17 Drug: Pantoprazole 8 mg/hr Route: IV; Rate: 25 ml/hr; Site: right forearm; rv 19:31 Follow up: IV Status: Infusion continued upon admission rv Disposition: 05/11/19 16:25 Hospitalization ordered by Raymond Chan for Inpatient Admission. Preliminary diagnosis are Cystitis, unspecified without hematuria, Severe sepsis with septic shock, Gastrointestinal hemorrhage, unspecified. - Bed requested for Intensive Care Unit. - Status is Inpatient Admission. rv - Condition is Critical. - Problem is new. - Symptoms are unchanged. UTI on Admission? No Critical care time excluding procedures: 16:16 Critical care time: Bedside Care: 30 minutes, Consultation: 20 minutes, Family ma2 Intervention: 10 minutes. Total time: 60 minutes Signatures: Dispatcher [employer] EDMS Radha Galindo Stephanie, RN RN sv Smirch, Shelby, RN RN ss Leal, Jahala, RN RN jl7 Alzahri, Mohammad, MD MD ma2 Vicente, Ronaldo, RN RN rv Corrections: (The following items were deleted from the chart) 12:16 11:48 Acetaminophen 1000 mg PO once ordered. ma2 sv 16:57 16:13 Misc. Order ordered. ma2 rv 18:36 16:25 Hospitalization Ordered by Raymond Chan for Inpatient Admission. Preliminary bd diagnosis is Cystitis, unspecified without hematuria; Severe sepsis with septic shock; Gastrointestinal hemorrhage, unspecified. Bed requested for Intensive Care Unit. Status is Inpatient Admission. Condition is Critical. Problem is new. Symptoms are unchanged. UTI on Admission? No. ma2 19:32 18:36 05/11/2019 16:25 Hospitalization Ordered by Raymond Chan for Inpatient rv Admission. Preliminary diagnosis is Cystitis, unspecified without hematuria; Severe sepsis with septic shock; Gastrointestinal hemorrhage, unspecified. Bed requested for Intensive Care Unit. Status is Inpatient Admission. Condition is Critical. Problem is new. Symptoms are unchanged. UTI on Admission? No. bd
--- NOTE | 2019-05-11 16:26 | ER ---
Nurse's Notes [facility] Name: Ernie Carmona Age: 83 yrs Sex: Male : 1935 Arrival Date: 05/11/2019 Time: 11:43 Bed 4 Private MD: Diagnosis: Cystitis, unspecified without hematuria;Severe sepsis with septic shock;Gastrointestinal hemorrhage, unspecified Presentation: 05/11 11:43 Presenting complaint: EMS states: Family reports lethargy and decrease in mental status ss that began a few days ago, but has progressed. EMS reports on arrival, patient's temperature on arrival to home was 102.3, after removing many blankets from patient and rechecking temperature moments later it decreased to 99.9. Transition of care: patient was not received from another setting of care. Onset of symptoms is unknown. Risk Assessment: Do you want to hurt yourself or someone else? Patient reports no desire to harm self or others. Care prior to arrival: IV initiated. 20 GA, in the right hand, Glucose check: 109. 11:43 Method Of Arrival: EMS: [facility] ss 11:43 Acuity: SKIP 2 ss 11:45 Acuity: SKIP 1 sv 11:45 Initial Sepsis Screen: Does the patient meet any 2 criteria? RR > 20 per min. Altered sv Mental Status. Yes Does the patient have a suspected source of infection? No. Patient's initial sepsis screen is negative. Triage Assessment: 11:45 General: Appears in no apparent distress. comfortable, Behavior is cooperative, quiet. sv Pain: Denies pain. Neuro: Level of Consciousness is obeys commands, confused, lethargic, Oriented to person. Cardiovascular: Pulses are 3+ in right radial artery and left radial artery. Cardiovascular: Rhythm is sinus rhythm. Respiratory: Airway is patent Respiratory effort is even, unlabored, Respiratory pattern is regular, symmetrical. Derm: Skin is pale. Historical: - Allergies: 11:53 Analog; ss 11:53 OPIOID ANALGESICS; ss 11:53 PENICILLINS; ss - Home Meds: 11:53 Alprazolam Oral [Active]; metoprolol tartrate 25 mg Oral tab 0.5 tab 2 times per day ss [Active]; furosemide 20 mg Oral tab 1 tab once daily [Active]; atorvastatin 10 mg oral tab 1 tab once daily [Active]; amiodarone 100 mg Oral tab 1 tab once daily [Active]; Xarelto 15 mg oral tab 0.5 tab daily [Active]; montelukast 10 mg oral tab 1 tab once daily [Active]; potassium chloride 10 mEq Oral TbER 1 tab once daily [Active]; - PMHx: 11:53 Bladder cancer; Born with ONE kidney; Papillary urothelial carcinoma; CVA; ss - PSHx: 11:53 CABG; TURP; Cholecystectomy; Hernia repair; ss - Immunization history:: Adult Immunizations unknown. - Social history:: Patient/guardian denies using alcohol, street drugs, The patient lives with family, Smoking status: Patient/guardian denies using tobacco. - Ebola Screening: : Patient denies exposure to infectious person Patient denies travel to an Ebola-affected area in the 21 days before illness onset. - Family history:: not pertinent. Screenin:45 Abuse screen: Denies threats or abuse. Denies injuries from another. Nutritional sv screening: No deficits noted. Tuberculosis screening: No symptoms or risk factors identified. Fall Risk No fall in past 12 months (0 pts). Secondary diagnosis (15 points) impaired mobility, IV access (20 points). Ambulatory Aid- None/Bed Rest/Nurse Assist (0 pts). Gait- Normal/Bed Rest/Wheelchair (0 pts) Mental Status- Overestimates/Forgets Limitations (15 pts.). Total Swift Fall Scale indicates High Risk Score (45 or more points). Fall prevention measures have been instituted. Side Rails Up X 2 Placed Close to Nursing Station Frequent Obs/Assessments Occuring Family Present and informed to notify staff if the need to leave the bedside As available patient and family educated on Fall Prevention Program and Strategies. Assessment: 12:57 Reassessment: Patient appears in no apparent distress at this time. No changes from sv previously documented assessment. Patient and/or family updated on plan of care and expected duration. Pain level reassessed. 15:50 Reassessment: Patient appears in no apparent distress at this time. Patient and/or rv family updated on plan of care and expected duration. Pain level reassessed. Patient is alert, oriented x 3, equal unlabored respirations, skin warm/dry/pink. blood pressure stays on the low side after bolus of NS. referred to Dr Greene and planned to do central line. started on Levophed drip. central line done by Dr Greene at bedside, aseptically. Pain:. 16:19 Reassessment: Patient appears in no apparent distress at this time. Patient and/or rv family updated on plan of care and expected duration. Pain level reassessed. Patient is alert, oriented x 3, equal unlabored respirations, skin warm/dry/pink. assisted Dr Greene with central line insertion on the right femoral vein. patient tolerated well. transferred the Norepinephrine drip on the central line and started the Pantoprazole drip on the right forearm. Patient denies pain at this time. Patient states symptoms have improved. 17:35 Reassessment: Patient appears in no apparent distress at this time. Patient and/or rv family updated on plan of care and expected duration. Pain level reassessed. Patient is alert, oriented x 3, equal unlabored respirations, skin warm/dry/pink. patient is asleep and comfortable. vital signs are stable. awaiting admission orders. Vital Signs: 11:45 BP 59 / 47; Pulse 93; Resp 32; Pulse Ox 88% on R/A; sv 11:48 BP 66 / 45; sv 11:49 Temp 97.9(O); jb1 12:00 BP 75 / 45; Pulse 77; Resp 29; Pulse Ox 100% on 2 lpm NC; sv 12:16 Weight 74.84 kg; sv 12:30 BP 88 / 44; Pulse 78; Resp 28; Pulse Ox 100% on 2 lpm NC; sv 13:00 BP 78 / 44; Pulse 76; Resp 28; Pulse Ox 100% on 2 lpm NC; sv 13:45 BP 76 / 40; Pulse 76; Resp 26; Pulse Ox 97% on 2 lpm NC; sv 14:00 BP 67 / 50; Pulse 78; Resp 26; Pulse Ox 99% on 2 lpm NC; rv 14:30 BP 71 / 40; Pulse 78; Resp 27; Pulse Ox 98% on 2 lpm NC; rv 15:00 BP 69 / 45; Pulse 75; Resp 27; Pulse Ox 100% on 2 lpm NC; rv 15:30 BP 67 / 53; Pulse 73; Resp 23; Pulse Ox 100% on 2 lpm NC; rv 16:18 BP 91 / 50; Pulse 69; Resp 19; Pulse Ox 100% on 2 lpm NC; rv 17:00 BP 99 / 72; Pulse 66; Resp 19; Pulse Ox 98% on 2 lpm NC; rv 17:30 BP 109 / 48; Pulse 64; Resp 18; Pulse Ox 98% on 2 lpm NC; rv 18:00 BP 105 / 50; Pulse 63; Resp 21; Pulse Ox 99% on 2 lpm NC; rv 18:30 BP 105 / 51; Pulse 62; Resp 21; Temp 98.7; Pulse Ox 99% on 2 lpm NC; rv 19:00 BP 111 / 47; Pulse 59; Resp 21; Temp 98.7; Pulse Ox 100% ; rv 11:45 Placed on O2 \T\ 2L per NC. O2 sat up to 100%. sv ED Course: 11:43 Patient arrived in ED. ss 11:43 Maintain EMS IV. Dressing intact. Site clean \T\ dry. Gauge \T\ site: 20G R wrist. sv 11:46 Howard Greene MD is Attending Physician. ma2 11:47 Triage completed. ss 11:50 Patient has correct armband on for positive identification. Placed in gown. Bed in low sv position. Side rails up X2. bus monitor on. Pulse ox on. NIBP on. Head of bed elevated. 11:50 Initial lab(s) drawn, by ED staff, sent to lab. First set of blood cultures drawn by ED sv staff. Inserted saline lock: 18 gauge in right forearm, using aseptic technique. ,using aseptic technique. done by Nathanael RAMIREZ Blood collected. 11:53 Arm band placed on right wrist. ss 11:59 EKG done, by software validation technician. reviewed by Howard Greene MD. at1 12:01 Phyllis Paredes RN is Primary Nurse. sv 12:28 Notified ED physician of a critical lab result(s). Lactate 3.4. la1 12:36 Chest Single View XRAY In Process Unspecified. EDMS 12:[address] via stretcher. sv 12:54 CT Head Brain wo Cont In Process Unspecified. EDMS 12:[address]. sv 13:26 Awaiting lab results, Awaiting radiology results. Awaiting re-evaluation by ER provider.sv 13:52 Report given to Tera RAMIREZ. sv 13:53 Primary Nurse role handed off by Phyllis Paredes, SAMREEN sv 14:04 Hill Neves RN is Primary Nurse. rv 14:38 Straight cath inserted, using sterile technique, 16 Fr. Specimen obtained. Returned rv bloody urine. Patient tolerated well. 16:24 Raymond Chan is Hospitalizing Provider. ma2 16:34 pt grand [phone]. pt [phone]. bd 19:31 No provider procedures requiring assistance completed. Patient admitted, IV remains in rv place. Administered Medications: 11:48 Drug: NS 0.9% (30 ml/kg) 30 ml/kg Route: IV; Rate: bolus; Site: right forearm; sv 13:15 Follow up: Response: No adverse reaction; IV Status: Completed infusion; IV Intake: sv 2245ml 16:21 Follow up: IV Status: Completed infusion; IV Intake: 2200ml rv 12:16 CANCELLED (Physician Discretion): Acetaminophen 1000 mg PO once sv 12:22 Drug: Cefepime 1 grams Route: IVPB; Rate: 200 ml/hr; Infused Over: 30 mins; Site: right jl7 forearm; 12:25 Follow up: Response: No adverse reaction; IV Status: Completed infusion; administered jl7 per protocol 12:29 Drug: vancoMYCIN 1 grams Route: IVPB; Infused Over: 2 hrs; Site: right forearm; jl7 14:38 Follow up: IV Status: Completed infusion rv 15:40 Drug: Pantoprazole 80 mg Route: IVP; Site: right forearm; jl7 16:17 Follow up: Response: No adverse reaction rv 15:40 Drug: Norepinephrine (4 mg/250 mL D5W) 4 mcg/min Route: IV; Rate: calculated rate; jl7 Site: right forearm; 19:31 Follow up: IV Status: Infusion continued upon admission rv 16:17 Drug: Pantoprazole 8 mg/hr Route: IV; Rate: 25 ml/hr; Site: right forearm; rv 19:31 Follow up: IV Status: Infusion continued upon admission rv Intake: 13:15 IV: 2245ml; Total: 2245ml. sv 16:21 IV: 2200ml; Total: 4445ml. rv Outcome: 16:25 Decision to Hospitalize by Provider. ma2 19:31 Admitted to ICU accompanied by nurse, accompanied by tech, family with patient, via rv stretcher, room 2, with oxygen, on monitor, with chart, Report called to carroll ramirez 19:31 Condition: improved 19:31 Instructed on the need for admit. 19:32 Patient left the ED. rv Signatures: Dispatcher [employer] Jos Donnelly Barbara bd Verde, Stephanie, RN RN Nataly Daigle RN RN ss Maru Gutierrez, threading machine tender EKG Tat1 Nathanael Reed RN RN Jaleesa Haney RN RN jl7 Howard Greene MD MD ma2 Hill Neves RN RN rv
--- NOTE | 2019-05-11 17:11 | EKG ---
Test Date: 2019-05-11 Test Time: 11:56:07 Engineering And Operations Director: YURY MEASUREMENT RESULTS: Intervals: Rate: 80 OH: 174 QRSD: 128 QT: 410 QTc: 472 Henderson: P: 51 OH: 174 QRS: -47 T: 100 INTERPRETIVE STATEMENTS: Sinus rhythm with premature atrial complexes Left axis deviation Nonspecific intraventricular block Cannot rule out Septal infarct, age undetermined Abnormal ECG Compared to ECG 12/04/2018 21:02:31 Atrial premature complex(es) now present Myocardial infarct finding still present Electronically Signed On 05-11-19 17:10:35 CDT by Phillip Adams
--- NOTE | 2019-05-11 17:12 | P.HP ---
Certification for Inpatient With expected LOS: >2 Midnights Practitioner: I am a practitioner with admitting privileges, knowledge of patient current condition, hospital course, and medical plan of care. Services: Services provided to patient in accordance with Admission requirements found in Title 42 Section 412.3 of the Code of Federal Regulations Patient History Date of Service: 05/12/19 Reason for admission: Altered mental status History of Present Illness: 83-year-old gentleman with a history of bladder cancer was brought to the emergency department due to altered mental status. Family reports patient was more lethargic today and also developed fever. His oral intake has been poor. He also reported melena. Patient was confused and could not provide any history. No family also around to provide history. In the ED, patient was noted to be febrile, hypotensive. CBC showed no leukocytosis but anemia with a hemoglobin of 9. Patient was not actively bleeding in the ED. He is on Xarelto for chronic atrial fib. UA suggest the presence of UTI. Lactic acid elevated. Chest x-ray shows no consolidation. Patient was diagnosed with septic shock, central line was placed, he was given IV normal saline and started on Levophed for persistent hypotension. He has also started on IV antibiotics and admitted for further management. Allergies codeine Allergy (Verified 08/23/14 17:10) Nausea/Vomiting Penicillins Allergy (Verified 08/23/14 17:10) Shortness of breath Home Medications: ALPRAZolam [Xanax*] 0.25 mg PO BEDTIME PRN 10/01/14 Amiodarone HCl 100 mg PO DAILY 07/19/16 Atorvastatin Calcium [Lipitor*] 10 mg PO BEDTIME 07/19/16 Furosemide [Lasix*] 20 mg PO DAILY 07/19/16 Rivaroxaban [Xarelto*] 7.5 mg PO BEDTIME 07/19/16 Famotidine [Pepcid*] 20 mg PO DAILY 05/17/17 L.acidoph,Paracasei, B.lactis [Probiotic] 1 each PO DAILY 05/17/17 Potassium Chloride [Klor-Con 10] 10 meq PO DAILY 05/17/17 Loratadine 1 cap PO DAILY 12/05/18 Ascorbic Acid [Vitamin C] 500 mg PO BID 05/11/19 Cran/Vitc/Mannose/Fos/Bromeln [Cystex Cranberry Liquid] 1 dose PO BEDTIME Docusate Sodium [Stool Softener] 1 cap PO DAILY 05/11/19 Iron 64 mg PO DAILY 05/11/19 Metoprolol Tartrate 12.5 mg PO BID 05/11/19 Montelukast Sodium 10 mg PO BEDTIME 05/11/19 - Past Medical/Surgical History Diabetic: No -: Hypocholesterolemia -: Coronary artery disease -: Peripheral neuropathy affecting his lower extremities -: hx bladder CA -: CABG -: gallblader -: cholecystectomy - Family History Father Notes: none Mother -: Hypertension, Stroke - Social History Alcohol use: No CD- Drugs: No Caffeine use: No Review of Systems is unable to be obtained (Due to altered mental status) Physical Examination - Physical Exam General: In no apparent distress, Oriented x1, Cooperative HEENT: Atraumatic, Normocephalic, Mucous membr. moist/pink Neck: Supple, JVD not distended, No Thyromegaly Respiratory: Clear to auscultation bilaterally, Normal air movement Cardiovascular: No edema, Normal pulses, Regular rate/rhythm, Normal S1 S2 Capillary refill: <2 Seconds Gastrointestinal: Normal bowel sounds, Soft and benign, Non-distended, No tenderness Musculoskeletal: No clubbing, No swelling Integumentary: No rashes Neurological: Normal speech, Other (Moves all extremities spontaneously. Nonfocal.) Lymphatics: No axilla or inguinal lymphadenopathy - Studies Laboratory Data (last 24 hrs) 05/11/19 11:50: PT 15.5 H, INR 1.33, APTT 31.2 05/11/19 11:50: WBC 9.0, Hgb 9.4 L, Hct 27.1 L, Plt Count 66 L 05/11/19 11:50: Sodium 142, Potassium 3.4 L, BUN 20 H, Creatinine 1.55 H, Glucose 100, Total Bilirubin 1.1 H, AST 12 L, ALT 9 L, Alkaline Phosphatase 78, Lipase 80 Imagings Data: Chest x-ray: No consolidation. EKG: Sinus rhythm with atrial complexes. Head CT: No acute intracranial abnormality. Assessment and Plan - Problems (Diagnosis) (1) Septic shock Current Visit: Yes Status: Acute Plan: Admit to ICU Sepsis protocol initiated IV normal saline Continue Levophed drip IV cefepime and vancomycin Serial Lactate levels Follow urine culture and blood cultures. (2) Altered mental status Current Visit: Yes Status: Acute Plan: IV antibiotics as above IV hydration as above Neurochecks (3) UTI (urinary tract infection) Current Visit: Yes Status: Acute Plan: IV antibiotics-cefepime and vancomycin (4) GI bleed Current Visit: Yes Status: Acute Plan: Hold Xarelto Monitor for active bleeding. (5) Acute on chronic anemia Current Visit: Yes Status: Acute Plan: Monitor H&H and transfuse p.r.n. for hemoglobin less than 7. (6) Chronic a-fib Current Visit: Yes Status: Acute Plan: Continue amiodarone Hold Xarelto due to GI bleed. - Advance Directives Does patient have a Living Will: No Does patient have a Durable POA for Healthcare: Yes Critical Care: Yes (Critical time spent managing patient's septic shock was about 57 min.) Time Spent Managing Pts Care (In Minutes): 68
[2019-05-11] MEDS ORDERED: ACETAMINOPHEN 325 MG/SUPP RECT PRN (19:17)
[2019-05-11] MEDS ORDERED: PROMETHAZINE 25 MG/SUPP RECT PRN (19:17)
[2019-05-11 20:30] LABS: Thyroid Stimulating Hormone 0.764 uIU/mL (0.360-3.740)
[2019-05-11] MEDS: D5 0.9 NS 1,000 ML IV SCH (21:41)
[2019-05-11] MEDS ORDERED: NOREPINEPHRINE 4 MG/4 ML VIAL ONE (22:33)
[2019-05-11] MEDS ORDERED: D5W 250 ML IV ONE (22:33)
[2019-05-11] MEDS: NOREPINEPHRINE 4 MG in D5W 250 ML IV PRN (22:58)
[2019-05-11] MEDS ORDERED: VANCOMYCIN 1 GM/250 ML BAG IV ONE (23:45)
[2019-05-12] MEDS ORDERED: CEFEPIME 1 GM/VIAL IV SCH
[2019-05-12] MEDS ORDERED: VANCOMYCIN 1 GM/VIAL ONE ×2 (00:29→23:50)
[2019-05-12] MEDS ORDERED: CEFEPIME 1 GM/100 ML BAG IV ONE (00:29)
[2019-05-12] MEDS ORDERED: NA CHLORIDE 0.9% 250 ML ONE ×3 (00:30→23:51)
[2019-05-12] MEDS: PANTOPRAZOLE INJ 80 MG in NA CHLORIDE 0.9% 250 ML IV SCH ×3 (01:10→21:27)
[2019-05-12 07:44] LABS: Absolute Lymphocytes (CBC) 1.1 K/uL (0.7-4.9); Basophils % 0.1 % (0-1.3); Hematocrit 26.6 % (39.6-49.0); Lymphocytes % 6.3 % (15.3-44.8); MPV 9.4 fL (7.6-11.3); RBC Red Blood Cell Count 3.02 M/uL (4.33-5.43)
[2019-05-12 07:49] LABS: Magnesium 1.8 mg/dL (1.8-2.4); Phosphorus 2.1 mg/dL (2.5-4.9); Potassium 3.9 mmol/L (3.5-5.1)
[2019-05-12] MEDS ORDERED: MAGNESIUM SULFATE 1 gm IVPB 1 GM/100 ML BAG IV ONE (08:00)
[2019-05-12] MEDS ORDERED: POTASSIUM PHOS IN 0.9 % NACL 15 MMOL/250 ML BAG IV ONE (08:03)
[2019-05-12] MEDS: NOREPINEPHRINE 4 MG in D5W 250 ML IV PRN (08:14)
--- NOTE | 2019-05-12 08:45 | P.PN ---
Subjective Date of Service: 05/12/19 Chief Complaint: Altered mental status Patient was given 1 unit PRBC transfusion last night. Patient is more awake and alert today. He denies any complaint. He denies shortness of breath. He is noted to be tachypneic. He remain on Levophed drip. He has been afebrile. Nursing staff report a small bowel movement which was blood stained last night. Physical Examination - Vital Signs Temperature: 98.5 F Blood Pressure: 143/93 Pulse: 55 Respirations: 29 Pulse Ox (%): 98 - Physical Exam General: Alert, In no apparent distress, Oriented x3 HEENT: PERRLA, Mucous membr. moist/pink Neck: Supple, JVD not distended Respiratory: Clear to auscultation bilaterally, Normal air movement Cardiovascular: No edema, Regular rate/rhythm, Normal S1 S2 Capillary refill: <2 Seconds Gastrointestinal: Normal bowel sounds, Soft and benign, Non-distended Musculoskeletal: No clubbing, No swelling Integumentary: No rashes Neurological: Normal strength at 5/5 x4 extr, Cranial nerves 3-12 intact - Studies Laboratory Data (last 24 hrs) 05/11/19 11:50: PT 15.5 H, INR 1.33, APTT 31.2 05/11/19 11:50: WBC 9.0, Hgb 9.4 L, Hct 27.1 L, Plt Count 66 L 05/11/19 11:50: Sodium 142, Potassium 3.4 L, BUN 20 H, Creatinine 1.55 H, Glucose 100, Total Bilirubin 1.1 H, AST 12 L, ALT 9 L, Alkaline Phosphatase 78, Lipase 80 Assessment And Plan - Current Problems (Diagnosis) (1) Septic shock Current Visit: Yes Status: Acute Plan: Reduce IV normal saline to maintainance rate Continue Levophed drip Continue IV cefepime and vancomycin. Urine culture: No growth to date Follow urine culture and blood cultures. Monitor urine output. (2) Altered mental status Current Visit: Yes Status: Acute Plan: IV antibiotics as above IV hydration as above Neurochecks (3) UTI (urinary tract infection) Current Visit: Yes Status: Acute Plan: IV antibiotics-cefepime and vancomycin Follow urine culture. [place] catheter is in place. (4) GI bleed Current Visit: Yes Status: Acute Plan: Xarelto is on hold. No active bleeding for now. Monitor for active bleeding. (5) Acute on chronic anemia Current Visit: Yes Status: Acute Plan: Dropping hemoglobin noted. Patient given 1 unit PRBC last night. Monitor H&H and transfuse p.r.n. (6) Chronic a-fib Current Visit: Yes Status: Acute Plan: Stable Continue amiodarone Xarelto is on hold due to GI bleed.
--- NOTE | 2019-05-12 09:37 | RAD REPORT ---
EXAM DESCRIPTION: RAD - Chest Single View - 05/12/2019 9:25 am CLINICAL HISTORY: Tachypnea, H/o CHF Chest pain. COMPARISON: Chest Single View dated 05/11/2019; Chest Single View dated 12/04/2018; Chest Single View d ated 02/19/2018; Chest Single View dated 05/20/2017; Stone Protocol dated 12/16/2018; Stone Protocol da chau 12/04/2018; Thorax W/ Con dated 05/21/2017 FINDINGS: Portable technique limits examination quality. Prominent emphysematous changes are noted. Mild interstitial pulmonary edema suspected bilaterally. R ight aortic arch is seen. Postsurgical changes of a CABG noted. Left-sided port catheter its tip in t he SVC. IMPRESSION: Mild CHF versus volume overload pattern.
[2019-05-12] MEDS: CEFEPIME/SWI 1gm 10 ML IV SCH ×2 (09:39→21:27)
[2019-05-12] MEDS: D5 0.9 NS 1,000 ML IV SCH ×2 (11:39→15:17)
[2019-05-12 12:13] LABS: Hematocrit 25.9 % (39.6-49.0)
[2019-05-12 13:41] LABS: Anisocytosis 2+; Blood Morphology Comment NOTED (NOT SEEN); Platelet Estimate DECR; Poikilocytosis 1+
[2019-05-12 13:42] LABS: Burr Cells 2+
--- NOTE | 2019-05-12 15:27 | RAD REPORT ---
EXAM DESCRIPTION: NM - GI Blood Loss Imaging - 05/12/2019 3:04 pm CLINICAL HISTORY: Gastrointestinal bleeding COMPARISON: None. TECHNIQUE: The patient was administered 26.8 mCi TC labeled red blood cells. Dynamic images of the abdomen and pelvis were obtained for 60 minutes FINDINGS: No abnormal radiotracer activity is seen within the bowel. No abnormality displayed IMPRESSION: No evidence of active gastrointestinal bleeding during the examination
[2019-05-12 18:44] LABS: Hematocrit 26.6 % (39.6-49.0)
[2019-05-12] MEDS ORDERED: FUROSEMIDE 20 MG/ 2ML VIAL IV ONE (22:01)
[2019-05-12] MEDS ORDERED: VANCOMYCIN 1.5 GM in NA CHLORIDE 0.9% 500 ML IVPB SCH (23:00)
[2019-05-13] MEDS: VANCOMYCIN 1.5 GM in NA CHLORIDE 0.9% 500 ML IVPB SCH ×2
[2019-05-13 05:07] LABS: Absolute Lymphocytes (CBC) 0.5 K/uL (0.7-4.9); Basophils % 0.4 % (0-1.3); MPV 9.3 fL (7.6-11.3); RBC Red Blood Cell Count 2.96 M/uL (4.33-5.43)
[2019-05-13 05:23] LABS: Magnesium 1.8 mg/dL (1.8-2.4); Phosphorus 2.7 mg/dL (2.5-4.9); Potassium 3.5 mmol/L (3.5-5.1)
[2019-05-13 06:22] VITALS: BMI 24.4
[2019-05-13] MEDS ORDERED: MAGNESIUM SULFATE 1 gm IVPB 1 GM/100 ML BAG IV ONE (07:45)
[2019-05-13] MEDS: PANTOPRAZOLE INJ 80 MG in NA CHLORIDE 0.9% 250 ML IV SCH (08:00)
[2019-05-13] MEDS ORDERED: KCL 20 MEQ/100 mL IVPB 20 MEQ/100 ML BAG IV SCH (08:00)
--- NOTE | 2019-05-13 08:20 | P.PN ---
Subjective Date of Service: 05/13/19 Chief Complaint: Altered mental status Subjective: Doing well Patient is more awake and alert. He denies any complaint. He denies shortness of breath. He was given a dose of IV Lasix last night. Levophed drip was weaned off since yesterday. He has been afebrile. Nursing staff report nonbloody bowel movement. Physical Examination - Vital Signs Temperature: 97.8 F Blood Pressure: 131/60 Pulse: 90 Respirations: 30 Pulse Ox (%): 95 - Physical Exam General: Alert, In no apparent distress, Oriented x2 Neck: Supple, JVD not distended Respiratory: Clear to auscultation bilaterally, Normal air movement Cardiovascular: No edema, Regular rate/rhythm, Normal S1 S2 Capillary refill: <2 Seconds Gastrointestinal: Normal bowel sounds, Soft and benign, Non-distended Musculoskeletal: No swelling Integumentary: No rashes Neurological: Normal strength at 5/5 x4 extr - Studies Microbiology Data (last 24 hrs): 05/11/19 14:20 Clean Catch Urine [place] Count - Final <10,000 CFU/ML. 05/11/19 14:20 Clean Catch Urine - Final No growth. Assessment And Plan - Current Problems (Diagnosis) (1) Septic shock Current Visit: Yes Status: Acute Plan: IV fluid and Levophed drip weaned off. Continue IV cefepime. Discontinue vancomycin. Follow urine culture and blood cultures. (2) Altered mental status Current Visit: Yes Status: Acute Plan: IV antibiotics as above (3) UTI (urinary tract infection) Current Visit: Yes Status: Acute Plan: Urinalysis highly suggestive of UTI. Urine culture: No growth. Continue IV cefepime. (4) GI bleed Current Visit: Yes Status: Acute Plan: Xarelto is on hold Monitor for active bleeding. GI consult is pending. (5) Acute on chronic anemia Current Visit: Yes Status: Acute Plan: Status post 1 unit PRBC transfusion. Hemoglobin is now stable. Monitor H&H and transfuse p.r.n. for hemoglobin less than 7. (6) Chronic a-fib Current Visit: Yes Status: Acute Plan: Continue amiodarone Holding Xarelto due to GI bleed.
[2019-05-13] MEDS: CEFEPIME/SWI 1gm 10 ML IV SCH ×2 (09:32→21:30)
[2019-05-13] MEDS: PANTOPRAZOLE 40 MG INJ IVP SCH ×2 (09:32→21:30)
[2019-05-13] MEDS ORDERED: NA CHLORIDE 0.9% 100 ML ONE (10:37)
[2019-05-13 11:52] LABS: Anisocytosis 1+; Blood Morphology Comment NOTED (NOT SEEN); Platelet Estimate DECR
[2019-05-13 11:53] LABS: Poikilocytosis 1+
[2019-05-13] MEDS ORDERED: MAGNESIUM CITRATE 300 ML BOT PO ONE (13:00)
[2019-05-13] MEDS ORDERED: GOLYTELY 4000 ML PO ONE ×2 (14:00→17:00)
[2019-05-13] MEDS: METOCLOPRAMIDE 10 MG/2mL INJ IV SCH ×2 (14:16→16:42)
[2019-05-13] MEDS: ALBUTEROL 2.5 MG/3 ML NEB SOL NEB PRN (18:13)
[2019-05-13] MEDS: SODIUM CHLORIDE 0.9% 10ML INJ IV PRN (21:33)
[2019-05-14] MEDS: VANCOMYCIN 1.5 GM in NA CHLORIDE 0.9% 500 ML IVPB SCH (00:34)
[2019-05-14] MEDS: METOCLOPRAMIDE 10 MG/2mL INJ IV SCH (01:35)
[2019-05-14 05:19] LABS: Absolute Lymphocytes (CBC) 0.3 K/uL (0.7-4.9); Basophils % 0.3 % (0-1.3); Hematocrit 25.5 % (39.6-49.0); MPV 9.2 fL (7.6-11.3)
[2019-05-14 05:35] LABS: Magnesium 1.9 mg/dL (1.8-2.4); Phosphorus 2.7 mg/dL (2.5-4.9); Potassium 3.3 mmol/L (3.5-5.1)
[2019-05-14 06:16] LABS: Albumin 2.5 g/dL (3.4-5.0); Bilirubin Direct 0.3 mg/dL (0-0.2); Bilirubin Total 0.9 mg/dL (0.2-1.0); Magnesium 1.9 mg/dL (1.8-2.4); Protein, Total 5.9 g/dL (6.4-8.2)
[2019-05-14] MEDS: ALBUTEROL 2.5 MG/3 ML NEB SOL NEB PRN ×2 (07:21→12:18)
[2019-05-14 07:43] LABS: Protime INR 1.39
[2019-05-14] MEDS ORDERED: NA CHLORIDE 0.9% 250 ML ONE (08:06)
[2019-05-14] MEDS: KCL 20 MEQ/100 mL IVPB 20 MEQ/100 ML BAG IV SCH ×4 (08:20→20:53)
[2019-05-14] MEDS: CEFEPIME/SWI 1gm 10 ML IV SCH ×2 (08:21→20:53)
[2019-05-14] MEDS: METOPROLOL TAR 25 MG TAB PO SCH ×2 (08:21→08:36)
[2019-05-14] MEDS: AMIODARONE HCL 200 MG TAB PO SCH ×2 (08:22→09:58)
--- NOTE | 2019-05-14 08:29 | RAD REPORT ---
EXAM DESCRIPTION: Jai Single View05/14/2019 6:59 am CLINICAL HISTORY: Shortness of breath COMPARISON: May 12 FINDINGS: Mild bilateral pulmonary opacities. Small left pleural effusions suspected. Heart is mild ly to moderately enlarged. Right-sided aortic arch. Central venous catheter with its tip near the junction of brachiocephalic ve in and superior vena cava Postsurgical changes involve the chest IMPRESSION: Mild CHF
[2019-05-14] MEDS: PANTOPRAZOLE 40 MG INJ IVP SCH ×2 (08:38→20:53)
[2019-05-14] MEDS ORDERED: ALBUMIN HUMAN 25% 100 ML IV ONE (09:22)
[2019-05-14 10:10] LABS: Anisocytosis 1+; Blood Morphology Comment NOTED (NOT SEEN); Platelet Estimate DECR
--- NOTE | 2019-05-14 11:25 | EKG ---
Test Date: 2019-05-14 Test Time: 07:35:15 Pet Walker: YURY MEASUREMENT RESULTS: Intervals: Rate: 91 [place]: 162 QRSD: 130 QT: 402 QTc: 494 [place]: P: -17 NV: 162 QRS: -32 T: 88 INTERPRETIVE STATEMENTS: Sinus rhythm with premature supraventricular complexes Left axis deviation Nonspecific intraventricular block Nonspecific T wave abnormality Abnormal ECG Compared to ECG 05/11/2019 11:56:07 T-wave abnormality now present Myocardial infarct finding no longer present Electronically Signed On 05-14-19 11:24:47 CDT by Phillip Adams
--- NOTE | 2019-05-14 11:47 | P.PN ---
Subjective Date of Service: 05/14/19 Chief Complaint: Altered mental status Patient states he feels much better today. He endorsed some shortness of breath and wheezes. His blood pressure had been stable but soft since the Levophed was weaned off. He has been afebrile. Physical Examination - Vital Signs Temperature: 99.1 F Blood Pressure: 100/71 Pulse: 91 Respirations: 36 Pulse Ox (%): 100 - Physical Exam General: In no apparent distress, Oriented x2 HEENT: Mucous membr. moist/pink Neck: Supple, JVD not distended Respiratory: Crackles/rales (Mild diffuse crackle) Cardiovascular: Edema (1+ bilateral lower extremity pitting edema), Irregular heart rate/rhythm Capillary refill: <2 Seconds Gastrointestinal: Normal bowel sounds, Soft and benign, Non-distended, No tenderness Musculoskeletal: Swelling (Bilateral lower extremity edema) Integumentary: No rashes - Studies Microbiology Data (last 24 hrs): 05/11/19 12:05 Blood - Blood Anaerobic Blood Culture - Final Proteus Mirabilis 05/11/19 12:05 Blood - Blood Gram Stain - Final 05/11/19 14:20 Clean Catch Urine [place] Count - Final <10,000 CFU/ML. 05/11/19 14:20 Clean Catch Urine - Final No growth. Medications List Reviewed: Yes Assessment And Plan - Current Problems (Diagnosis) (1) Septic shock Current Visit: Yes Status: Acute Plan: Resolved. Blood pressure is still soft. IV fluid and Levophed drip weaned off. Continue IV cefepime. Repeat blood culture. Albumin infusion x 1 dose to improve blood pressure. (2) Altered mental status Current Visit: Yes Status: Acute Plan: Secondary to sepsis. Resolved. IV antibiotics as above. (3) UTI (urinary tract infection) Current Visit: Yes Status: Acute Plan: Urinalysis highly suggestive of UTI. Urine culture: No growth. Blood culture is growing Proteus-likely urinary source. Continue IV cefepime. (4) GI bleed Current Visit: Yes Status: Acute Plan: Xarelto is on hold Not actively bleeding Seen by GI patient and planned for endoscopy. (5) Acute on chronic anemia Current Visit: Yes Status: Acute Plan: Status post 1 unit PRBC transfusion. Hemoglobin dropped to 8 but now stable at around 8. Monitor H&H and transfuse p.r.n. for hemoglobin less than 7. (6) Chronic a-fib Current Visit: Yes Status: Acute Plan: Continue amiodarone and metoprolol. Holding Xarelto due to GI bleed. (7) Acute diastolic (congestive) heart failure Current Visit: Yes Status: Acute Plan: Intermittent IV Lasix.
[2019-05-14] MEDS: IPRATROPIUM BROM 0.5MG/2.5ML NEB SCH ×3 (12:18→20:00)
--- NOTE | 2019-05-14 17:13 | EKG ---
Test Date: 2019-05-14 Test Time: 15:54:42 Rehab Therapy Manager: [place] MEASUREMENT RESULTS: Intervals: Rate: 83 [place]: 174 QRSD: 130 QT: 404 QTc: 474 [place]: P: 57 [place]: 174 QRS: -25 T: 88 INTERPRETIVE STATEMENTS: Normal sinus rhythm Nonspecific intraventricular block Nonspecific T wave abnormality Abnormal ECG Compared to ECG 05/14/2019 07:35:15 Atrial premature complex(es) no longer present Left-axis deviation no longer present T-wave abnormality still present Electronically Signed On 05-14-19 17:12:28 CDT by Otf Montalvo
--- NOTE | 2019-05-14 17:55 | ECHO ---
HEIGHT: 5 ft 10 in WEIGHT: 184 lb 0 oz DATE OF STUDY: 05/14/[address]: Howard Garcia MD 2-DIMENSIONAL: YES M.MODE: YES DOPPLER: YES COLOR FLOW: YES TDS: PORTABLE: DEFINITY: BUBBLE STUDY: DIAGNOSIS: CHF CARDIAC HISTORY: CATHERIZATION: NO SURGERY: NO PROSTHETIC VALVE: NO PACEMAKER: NO MEASUREMENTS (cm) DIASTOLIC (NORMALS) SYSTOLIC (NORMALS) IVSd 1.2 (0.6-1.2) LA Diam 4.0 (1.9-4.0) LVEF 69% LVIDd 4.9 (3.5-5.7) LVIDs 3.0 (2.0-3.5) %FS 39% LVPWd 1.4 (0.6-1.2) Ao Diam 3.1 (2.0-3.7) 2 DIMENSIONAL ASSESSMENT: RIGHT ATRIUM: NORMAL LEFT ATRIUM: NORMAL RIGHT VENTRICLE: NORMAL LEFT VENTRICLE: LEFT VENTRICULAR HYPERTROPHY TRICUSPID VALVE: NORMAL MITRAL VALVE: NORMAL PULMONIC VALVE: NORMAL AORTIC VALVE: SCLEROSIS PERICARDIAL EFFUSION: NONE AORTIC ROOT: NORMAL LEFT VENTRICULAR WALL MOTION: NORMAL EF. DECREASED LEFT VENTRICULAR COMPLIANCE. DOPPLER/COLOR FLOW: MILD TRICUSPID REGURGITATION. NORMAL RIGHT VENTRICULAR SYSTOLIC PRESSURE. COMMENTS: LEFT VENTRICULAR HYPERTROPHY WITH DECREASED LEFT VENTRICULAR COMPLIANCE. NORMAL EF. MILD TRICUSPID REGURGITATION. NORMAL RIGHT VENTRICULAR SYSTOLIC PRESSURE. AORTIC SCLEROSIS. NO STENOSIS. TECHNOLOGIST: GINA HOBBS
--- NOTE | 2019-05-14 17:59 | P.PN ---
Subjective Date of Service: 05/14/19 Chief Complaint: Altered mental status Subjective: New changes (SOB with new tachycardia. Anesthesia canceled colonoscopy today due to poor clinical status.) Review of Systems 10-point ROS is otherwise unremarkable General: Weakness, Malaise Respiratory: Shortness of Breath Cardiovascular: Edema, Other (tachycardia) Physical Examination - Vital Signs Temperature: 98.4 F Blood Pressure: 92/46 Pulse: 85 Respirations: 36 Pulse Ox (%): 97 - Physical Exam General: Alert, Oriented x3, Cooperative HEENT: Atraumatic, Normocephalic, PERRLA Neck: Supple Respiratory: Diminished, Other (labored) Cardiovascular: Normal pulses Gastrointestinal: Soft and benign, No tenderness, No rebound, No guarding Neurological: Normal speech - Studies Microbiology Data (last 24 hrs): 05/11/19 12:05 Blood - Blood Anaerobic Blood Culture - Final Proteus Mirabilis 05/11/19 12:05 Blood - Blood Gram Stain - Final Medications List Reviewed: Yes Assessment And Plan - Current Problems (Diagnosis) (1) Hematochezia Current Visit: Yes Status: Acute Comment: Colonoscopy in 2015 -> colon polyps (2) Acute diastolic (congestive) heart failure Current Visit: Yes Status: Acute (3) Acute on chronic anemia Current Visit: Yes Status: Acute (4) Chronic a-fib Current Visit: Yes Status: Acute (5) Septic shock Current Visit: Yes Status: Acute (6) UTI (urinary tract infection) Current Visit: Yes Status: Acute (7) Sepsis Current Visit: No Status: Acute Qualifiers: Sepsis type: sepsis due to unspecified organism Qualified Code(s): A41.9 - Sepsis, unspecified organism (8) Hx of CABG Current Visit: No Status: Chronic (9) Hx of bladder cancer Current Visit: No Status: Chronic - Plan REC: 1) when cardiopulm stable, colonoscopy 2) check EKG and cardiac enzymes
--- NOTE | 2019-05-14 18:45 | P.PN ---
Date of Service: 05/14/19 Patient has been wheezing all day. Noted most of the wheezing come from the upper respiratory airway. His blood pressure has been soft, mildly tachycardic, Urine appear concentrated. Chest x-ray reviewed and reports congestion Patient seen by Dr. Dalton. Endoscopic canceled due to poor respiratory/cardiac status. Troponin checked is mildy elevated EKG demonstrates sinus rhythm with frequent PVCs. Echocardiogram result reviewed:Mildly reduced LV function, EF 69% Status post IV Albumin for rapid heart rate and soft blood pressure. Not able to give Lasix due to soft blood pressure and risk for hypotension. Patient at the moment denies any chest pain or palpitation. Cannot anticoagulants for elevated troponin due to GI and an acute anemia. Plan: Will trend troponin Monitor blood pressure closely Send to ICU for vasopressor if SBP drops below 80. Hold metoprolol Replete potassium IV to keep potassium level around 4. Cardiology consult. Mucomyst chest physiotherapy. Continue current antibiotics.
[2019-05-14] MEDS: ACETYLCYST 20% 4 ML VIAL IH SCH (20:00)
[2019-05-14] MEDS: SODIUM CHLORIDE 0.9% 10ML INJ IV PRN (20:54)
[2019-05-15] MEDS: KCL 20 MEQ/100 mL IVPB 20 MEQ/100 ML BAG IV SCH (00:23)
[2019-05-15] MEDS: ACETYLCYST 20% 4 ML VIAL IH SCH ×4 (02:00→20:00)
[2019-05-15] MEDS: IPRATROPIUM BROM 0.5MG/2.5ML NEB SCH ×4 (02:00→20:00)
[2019-05-15] MEDS: ALBUTEROL 2.5 MG/3 ML NEB SOL NEB PRN ×3 (02:01→13:10)
[2019-05-15 05:03] LABS: Absolute Lymphocytes (CBC) 0.4 K/uL (0.7-4.9); Basophils % 0.3 % (0-1.3); Hematocrit 23.2 % (39.6-49.0); Lymphocytes % 6.2 % (15.3-44.8); MPV 9.3 fL (7.6-11.3); RBC Red Blood Cell Count 2.61 M/uL (4.33-5.43)
[2019-05-15 05:05] LABS: Potassium 3.5 mmol/L (3.5-5.1)
[2019-05-15] MEDS ORDERED: NA CHLORIDE 0.9% 250 ML ONE (05:33)
[2019-05-15] MEDS ORDERED: KCL 20 MEQ/100 mL IVPB 20 MEQ/100 ML BAG IV SCH (06:00)
[2019-05-15] MEDS: CEFEPIME/SWI 1gm 10 ML IV SCH ×2 (08:36→20:36)
[2019-05-15] MEDS: PANTOPRAZOLE 40 MG INJ IVP SCH ×2 (08:37→20:36)
[2019-05-15] MEDS: AMIODARONE HCL 200 MG TAB PO SCH (08:37)
--- NOTE | 2019-05-15 10:50 | P.PN ---
Subjective Date of Service: 05/15/19 Chief Complaint: Altered mental status Patient reports shortness of breath otherwise states he is much better than yesterday. He has good urine output. about 1L out over the last 24 hrs. Not audibly wheezing today like he was doing yesterday. His blood pressure has been soft, SBP in the 90s. He has been afebrile. Physical Examination - Vital Signs Temperature: 98.7 F Blood Pressure: 92/53 Pulse: 106 Respirations: 20 Pulse Ox (%): 97 - Physical Exam General: Alert, In no apparent distress, Oriented x2 HEENT: Mucous membr. moist/pink Neck: Supple, JVD not distended Respiratory: Expiratory wheezes (Mild scattered wheezes.) Cardiovascular: No edema, No murmurs, Irregular heart rate/rhythm Gastrointestinal: Normal bowel sounds, Soft and benign, Non-distended, No tenderness Musculoskeletal: No swelling Integumentary: No rashes Neurological: Normal strength at 5/5 x4 extr, Cranial nerves 3-12 intact - Studies Microbiology Data (last 24 hrs): 05/11/19 12:05 Blood - Blood Anaerobic Blood Culture - Final Proteus Mirabilis 05/11/19 12:05 Blood - Blood Gram Stain - Final Medications List Reviewed: Yes Assessment And Plan - Current Problems (Diagnosis) (1) Septic shock Current Visit: Yes Status: Acute Plan: Resolved. Blood pressure is still soft. SBP in the 90s Continue IV cefepime. Repeat blood culture: No growth to date. Albumin infusion prn. (2) Altered mental status Current Visit: Yes Status: Acute Plan: Secondary to sepsis. Resolved. IV antibiotics as above. (3) UTI (urinary tract infection) Current Visit: Yes Status: Acute Plan: Urinalysis highly suggestive of UTI. Urine culture: No growth. Blood culture is growing Proteus-likely urinary source. Continue IV cefepime. Patient is slated for 5 days of IV antibiotics, followed by oral antibiotics to complete 10 days of treatment if repeat blood culture remain negative. (4) GI bleed Current Visit: Yes Status: Acute Plan: Xarelto is on hold Not actively bleeding Seen by GI patient and planned for endoscopy once clinically stable. (5) Acute on chronic anemia Current Visit: Yes Status: Acute Plan: Status post 1 unit PRBC transfusion. Hemoglobin dropped to 7.7. Continue monitor H&H and transfuse p.r.n. for hemoglobin less than 7. (6) Chronic a-fib Current Visit: Yes Status: Acute Plan: Continue amiodarone and metoprolol. Give metoprolol with holding parameters. Holding Xarelto due to GI bleed. (7) Acute diastolic (congestive) heart failure Current Visit: Yes Status: Acute Plan: Soft blood pressure and intermittent hypotension limit use of the scheduled Lasix for diuresis. Will give lasix intermittently, and with IV Albumin infusion as needed.
[2019-05-15 21:54] LABS: Hematocrit 24.5 % (39.6-49.0)
[2019-05-16] MEDS: IPRATROPIUM BROM 0.5MG/2.5ML NEB SCH ×4 (02:00→20:00)
[2019-05-16] MEDS: ACETYLCYST 20% 4 ML VIAL IH SCH ×4 (02:00→20:00)
--- NOTE | 2019-05-16 05:42 | CON ---
Date of Consultation: 05/15/2019 Admitted on 05/[address] Chan for sepsis. I have seen the patient on 05/15/2019 because of elevate d troponin. History Of Present Illness: Mr. Carmona is an 83-year-old male who still lives at home with his daughter . He is a DNR. Has history of CVA in the past. Has had a history of CABG. Has had a history of bl adder cancer before. He also has a history of dyslipidemia, anxiety, atrial fibrillation, gastroesop hageal reflux disease. He came in with sepsis, GI bleed. His last hemoglobin was 7.7. His last brian telet count was 51,000. His BNP is 6993. Troponin is 0.17. His potassium was 3.5. He was having s ome PVCs on his telemetry. He was slightly hypotensive at 92/57. Has had some issues with dyspnea, but he is much better today according to him. He denied any chest pain. Denied any nausea or vomiti ng. Denied any PND, orthopnea, or pedal edema. He denied any palpitation. He denied any syncope. Mr. Carmona was completely alert and oriented when I saw him this morning. Past Medical History: As stated above. Allergies: HE IS ALLERGIC TO CODEINE AND PENICILLIN. Review of Systems: Negative. Social History: Negative. Family History: Noncontributory. Medications At Home: Xarelto, Lipitor, amiodarone, Xanax, metoprolol Lasix, and Pepcid. Physical Examination: Vital Signs: Today, his blood pressure was 92/57. He was in sinus rhythm. Occasional PVC. General: No acute distress. Alert and oriented x3. HEENT: Negative. Neck: Supple without any bruit, lymphadenopathy, JVD, or thyromegaly. Chest: Reveals few crackles at the base on the right side. The left side was clear. Cardiac: Revealed a regular rhythm and rate without any gallops or rubs. He had a what sounds like an aortic sclerosis, murmur. Abdomen: Benign. Extremities: Revealed no clubbing, cyanosis. He had 1+ edema. Skin: Dry and intact. Neurological: He was alert and oriented x3. Diagnostic Data: Stated above. Echocardiogram that was done yesterday showed left ventricular hyper trophy, decreased left ventricular compliance and normal ejection fraction. No wall motion abnormali ties. Impression And Plan: 1.This is a patient with recent sepsis is still being treated. He has GI bleed. He has a hemoglobi n of 7.7. He was on metoprolol and Lasix. I agree with holding the Xarelto. Holding the metoprolol . Continue with amiodarone. His echocardiogram showed, not consistent with any myocardial infarctio n. We definitely not dealing with any acute coronary syndrome. Gastroenterology is following him. B lood transfusion may certainly help with his blood pressure. 2.Atrial fibrillation, but the patient is in normal rhythm, on amiodarone and will continue that. 3.Dyslipidemia, on Lipitor. 4.Anxiety, on Xanax. 5.Gastroesophageal reflux disease, on Pepcid. 6.History of cerebrovascular accident, stable. 7.History of coronary artery bypass grafting, stable. 8.History of bladder cancer. 9.Patient is a do not resuscitate. As mentioned earlier, I would continue his present regimen holdi ng Xarelto and holding the metoprolol, possibly blood transfusion. Continue GI followup. I will dis cuss the case further with Dr. Chan. KODY/MODL Voice ID: [id number] Report ID: [id number]
[2019-05-16 05:50] LABS: Absolute Lymphocytes (CBC) 0.5 K/uL (0.7-4.9); Basophils % 0.8 % (0-1.3); Hematocrit 25.2 % (39.6-49.0); Lymphocytes % 7.2 % (15.3-44.8); MPV 9.2 fL (7.6-11.3); RBC Red Blood Cell Count 2.83 M/uL (4.33-5.43)
[2019-05-16 06:08] LABS: Magnesium 1.9 mg/dL (1.8-2.4); Phosphorus 2.5 mg/dL (2.5-4.9); Potassium 3.6 mmol/L (3.5-5.1)
[2019-05-16] MEDS: ALBUTEROL 2.5 MG/3 ML NEB SOL NEB PRN ×2 (07:27→13:17)
--- NOTE | 2019-05-16 09:01 | P.PN ---
Subjective Date of Service: 05/16/19 Chief Complaint: Altered mental status No issues overnight. Patient reports poor sleep last night. Also reports occasional nonproductive cough. No recorded fever. Blood pressure has improved with SBP in the 100s Physical Examination - Vital Signs Temperature: 98.0 F Blood Pressure: 98/58 Pulse: 107 Respirations: 18 Pulse Ox (%): 98 - Physical Exam General: In no apparent distress, Oriented x2 HEENT: Mucous membr. moist/pink Neck: Supple, JVD not distended Respiratory: Expiratory wheezes (Mild diffuse expiratory wheezes, heard more in the upper airways.) Cardiovascular: No edema, Normal S1 S2, No murmurs, Irregular heart rate/rhythm Gastrointestinal: Normal bowel sounds, Soft and benign, Non-distended, No ascites, No tenderness Musculoskeletal: No erythema Integumentary: No rashes - Studies Medications List Reviewed: Yes Assessment And Plan - Current Problems (Diagnosis) (1) Septic shock Current Visit: Yes Status: Acute Plan: Resolved. Blood pressure is still soft. SBP in the 100s this morning. Continue IV cefepime. Need to complete at least 5 days of IV antibiotics. Repeat blood culture: No growth to date. (2) Altered mental status Current Visit: Yes Status: Acute Plan: Secondary to sepsis. Resolved. continue IV antibiotics as above. (3) UTI (urinary tract infection) Current Visit: Yes Status: Acute Plan: Urinalysis highly suggestive of UTI. Urine culture: No growth. Blood culture is grew Proteus-likely urinary source. Continue IV cefepime. Patient is slated for 5 days of IV antibiotics, followed by oral antibiotics to complete 10 days of treatment if repeat blood culture remain negative. (4) GI bleed Current Visit: Yes Status: Acute Plan: Xarelto is on hold Not actively bleeding Seen by GI patient and planned for endoscopy once clinically stable. (5) Acute on chronic anemia Current Visit: Yes Status: Acute Plan: Status post 1 unit PRBC transfusion. Hemoglobin dropped to 7.7. Now stable around 8. Continue monitor H&H and transfuse p.r.n. for hemoglobin less than 7. (6) Chronic a-fib Current Visit: Yes Status: Acute Plan: Continue amiodarone and metoprolol. Give metoprolol with holding parameters. Holding Xarelto due to GI bleed. (7) Acute diastolic (congestive) heart failure Current Visit: Yes Status: Acute Plan: Soft blood pressure and intermittent hypotension limit use of the scheduled Lasix for diuresis. He looks clinically dry. Will give lasix intermittently, and with IV Albumin infusion as needed. Bronchodilators.
[2019-05-16] MEDS: CEFEPIME/SWI 1gm 10 ML IV SCH ×2 (09:23→20:16)
[2019-05-16] MEDS: POTASS/SODIUM PHOSPHATE 1 PKT POWD.PACK PO SCH ×3 (09:23→11:19)
[2019-05-16] MEDS: PANTOPRAZOLE 40 MG INJ IVP SCH ×2 (09:23→20:16)
[2019-05-16] MEDS: AMIODARONE HCL 200 MG TAB PO SCH (09:24)
[2019-05-16 09:46] LABS: Blood Morphology Comment NOT SEEN (NOT SEEN); Platelet Estimate DECR
--- NOTE | 2019-05-16 13:04 | EKG ---
Test Date: 2019-05-15 Test Time: 21:52:18 Metal Furnace Operator: [place] MEASUREMENT RESULTS: Intervals: Rate: 114 MD: QRSD: 124 QT: 350 QTc: 482 [place]: P: MD: QRS: -34 T: 89 INTERPRETIVE STATEMENTS: Atrial fibrillation with rapid ventricular response with premature ventricular or aberrantly conducted complexes Left axis deviation Left bundle branch block Abnormal ECG Compared to ECG 05/14/2019 15:54:42 Ventricular premature complex(es) now present Left-axis deviation now present Left bundle-branch block now present Sinus rhythm no longer present T-wave abnormality no longer present Electronically Signed On 05-16-19 13:03:29 CDT by Otf Montalvo
--- NOTE | 2019-05-16 13:05 | P.PN ---
Subjective Date of Service: 05/16/19 Chief Complaint: Altered mental status Subjective: Improving (Feels better today. Cardiology has evaluated patient, PCP assessment - patient still not ready for endoscopic procedure. Has urosepsis and still treating.) Review of Systems 10-point ROS is otherwise unremarkable General: Weakness, Malaise Physical Examination - Vital Signs Temperature: 98.0 F Blood Pressure: 98/58 Pulse: 107 Respirations: 18 Pulse Ox (%): 98 - Physical Exam General: Alert, In no apparent distress, Oriented x3, Cooperative HEENT: Atraumatic, Normocephalic, PERRLA, EOMI Neck: Supple Respiratory: Diminished Cardiovascular: Normal pulses Gastrointestinal: Soft and benign, No tenderness, No rebound, No guarding Neurological: Normal speech - Studies Microbiology Data (last 24 hrs): 05/11/19 11:50 Blood - Blood Aerobic Blood Culture - Final No growth in 5 days. 05/11/19 11:50 Blood - Blood Anaerobic Blood Culture - Final No growth in 5 days. Medications List Reviewed: Yes Assessment And Plan - Current Problems (Diagnosis) (1) Hematochezia Current Visit: Yes Status: Acute Comment: Colonoscopy in 2015 -> colon polyps (2) Acute diastolic (congestive) heart failure Current Visit: Yes Status: Acute (3) Acute on chronic anemia Current Visit: Yes Status: Acute (4) Chronic a-fib Current Visit: Yes Status: Acute (5) Septic shock Current Visit: Yes Status: Acute (6) UTI (urinary tract infection) Current Visit: Yes Status: Acute (7) Sepsis Current Visit: No Status: Acute Qualifiers: Sepsis type: sepsis due to unspecified organism Qualified Code(s): A41.9 - Sepsis, unspecified organism (8) Hx of CABG Current Visit: No Status: Chronic (9) Hx of bladder cancer Current Visit: No Status: Chronic - Plan REC: 1) when cardiopulm stable, colonoscopy 2) check EKG and cardiac enzymes
[2019-05-16 13:38] LABS: Hematocrit 24.9 % (39.6-49.0)
[2019-05-16] MEDS ORDERED: ALBUMIN HUMAN 25% 100 ML IV ONE (21:12)
[2019-05-16 22:16] LABS: Hematocrit 25.1 % (39.6-49.0)
[2019-05-17] MEDS ORDERED: FUROSEMIDE 20 MG/ 2ML VIAL IV ONE (00:18)
[2019-05-17] MEDS: ACETYLCYST 20% 4 ML VIAL IH SCH ×3 (02:00→13:45)
[2019-05-17] MEDS: IPRATROPIUM BROM 0.5MG/2.5ML NEB SCH ×3 (02:00→13:45)
[2019-05-17] MEDS: AMIODARONE HCL 200 MG TAB PO SCH ×2 (06:00→09:00)
[2019-05-17 06:09] LABS: Phosphorus 3.1 mg/dL (2.5-4.9); Potassium 3.3 mmol/L (3.5-5.1)
--- NOTE | 2019-05-17 07:16 | RAD REPORT ---
EXAM DESCRIPTION: RAD - Chest Single View - 05/16/2019 9:40 pm CLINICAL HISTORY: Dyspnea COMPARISON: May 14 TECHNIQUE: AP portable chest image was obtained 2138 hours . FINDINGS: Lung volumes are low accentuating baseline interstitial pattern. Heart size is prominent b ut not clearly different. CABG surgical changes are noted. Vascular engorgement is evident. Patient h as interstitial and alveolar opacities asymmetrically prominent in the right base. Trachea is midline . No measurable pleural effusion and no pneumothorax. No acute bony abnormality seen. No acute aortic findings suspected. IMPRESSION: New interstitial and alveolar opacities have developed in the lower right lung field. Heart, vasculature and lung markings are all prominent in increased over comparison. Findings could all reflect CHF/volume overload. Asymmetric pattern would be unusual, particularly in the right base. A superimposed pneumonia should be considered.
[2019-05-17] MEDS: ALBUTEROL 2.5 MG/3 ML NEB SOL NEB PRN (07:30)
--- NOTE | 2019-05-17 07:49 | PN ---
Date of Progress Note: 05/16/2019 Subjective: The patient was seen on 05/15/2019 because of atrial fibrillation, hypotension. He has a history of chronic atrial fibrillation. He is on amiodarone 100 mg daily. His Xarelto has been he ld. His metoprolol has been held because of low blood pressure. I feel that the low blood pressure is secondary to severe anemia. His hemoglobin was 7.7. He has been gently hydrated. No transfusion is planned until his hemoglobin is below 7. His last blood pressure is 98/63. He remained in atria l fibrillation at a rate of about 100, but no symptoms with it. I would continue his present regimen . Certainly, increasing the amiodarone dose will be an option. Mr. Carmona is a do not resuscitate and I feel we do not plan any further cardiac workup on him at this point. We will manage him conservati vely. KODY/NATALIO Voice ID: [id number] Report ID: [id number]
[2019-05-17] MEDS: PANTOPRAZOLE 40 MG INJ IVP SCH (08:44)
[2019-05-17] MEDS: CEFEPIME/SWI 1gm 10 ML IV SCH (08:44)
[2019-05-17] MEDS: KCL 20 MEQ/100 mL IVPB 20 MEQ/100 ML BAG IV SCH ×2 (08:44→13:28)
[2019-05-17] MEDS ORDERED: NA CHLORIDE 0.9% 250 ML ONE (08:49)
--- NOTE | 2019-05-17 09:02 | P.PN ---
Date of Service: 05/16/19 Patient is an 83-year-old gentleman who I have seen on and off this past week for multiple different issues. He has had severe GI bleeding. He has also had lactic acidosis with septicemia. He also developed elevated troponins. His clinical condition has been deteriorating. Spoke with family about his history of bladder cancer. They have been considering hospice care for the last year after they spoke with the oncologist regarding the recurrent bladder cancer and with the fact that the patient did not want any treatment. They have not spoke with anyone during this hospital stay regarding hospice but that is something they been considering as his clinical condition has worsened this past week. According to the nurses he did have a good day yesterday; he sat up and ate while watching the baseball game. I looked in on him while he was sleeping. He still appeared to be tachypneic last night. This evening the nurses noted that he was not responding like he had been doing. On my evaluation he does follow my commands. He wiggles his toes on the right side. He squeezed my hand on the right side. His left side is much more swollen. He was not really doing it on the left side. Patient has had GI bleeding and we had to hold his anticoagulation this week. He is not a candidate for tPA. I spoke with the family and they did not want any aggressive measures. I did tell them that I would proceed with a CT scan and notify them of the results. Clinically he appears to have suffered a CVA- This is probably an embolic event as it looks like it has affected his Broca's area(Left MCA territory) as well as his Right MCA infarct affecting his strength on the left side. He is not a candidate for tPA. He is not a candidate for any aggressive interventions. Family has been contemplating palliative care and in light of the fact that he may have suffered another stroke(he had a stroke 3 years ago which affected his left side as well) they are probably going to go ahead and proceed with hospice care as was recommended by their oncologist over a year ago.
--- NOTE | 2019-05-17 09:03 | RAD REPORT ---
EXAM DESCRIPTION: RAD - Chest Single View - 05/17/2019 8:45 am CLINICAL HISTORY: Aspiration pneumonia COMPARISON: May 16 TECHNIQUE: AP portable chest image was obtained 0842 hours . FINDINGS: Interstitial and alveolar opacities in the lower left lung field are not clearly different from prior day imaging. Alveolar opacities in the right lung field may be fractionally improved. Dif ferential is minimal. Port-A-Cath remains in place. CABG surgical changes again noted. Heart and vasculature are normal. No measurable pleural effusion and no pneumothorax. No acute bony abnormality seen. Right-sided aortic arch anomaly again noted. No acute aortic finding. IMPRESSION: Bilateral lung base opacification is still present, fractionally improved on the right.
--- NOTE | 2019-05-17 09:08 | P.PN ---
Date of Service: 05/17/19 Updated the medical power of civil rights attorney Ms. Chantale Pruitt. Did go over the CT scan results with her. She does want to go ahead and proceed with hospice care. We had a long talk once again about his clinical condition. They are desiring to make him comfortable as they do not want him to suffer at this point in his life. They do not want to proceed with MRI imaging. They really did not want to proceed with any further intervention and would like for us to proceed with palliative care.
[2019-05-17 09:15] LABS: Absolute Lymphocytes (CBC) 0.6 K/uL (0.7-4.9); Basophils % 0.4 % (0-1.3); Hematocrit 25.9 % (39.6-49.0); Lymphocytes % 12.1 % (15.3-44.8); MPV 9.1 fL (7.6-11.3); RBC Red Blood Cell Count 2.95 M/uL (4.33-5.43)
[2019-05-17 09:31] VITALS: BP 119/74; TEMP 97.9
[2019-05-17 09:48] VITALS: O2SAT 98
[2019-05-17] MEDS ORDERED: METRONIDAZOLE 500mg IVPB 500 MG/100 ML BAG IV SCH (10:00)
--- NOTE | 2019-05-17 10:11 | RAD REPORT ---
EXAM DESCRIPTION: CT - Head Brain Wo Cont - 05/17/2019 4:25 am CLINICAL HISTORY: AMS COMPARISON: 05/11/2019 TECHNIQUE: CT HEAD WITHOUT IV CONTRAST on 05/17/2019 12:00 AM CDT This exam was performed according to our departmental dose-optimization program, which includes autom ated exposure control, adjustment of the mA and/or kV according to patient size and/or use of iterati ve reconstruction technique. FINDINGS: There is no acute hemorrhage, mass effect or midline shift. Bradley-white differentiation is preserved. There is no hydrocephalus. There is mild diffuse cerebral atrophy. There are mild patchy h ypodensities within the periventricular and subcortical white matter, consistent with microangiopathi c ischemic changes. The calvarium is intact. Orbits and globes are unremarkable. The paranasal sinuses are clear. Mastoid air cells are clear. IMPRESSION: No acute intracranial findings. Electronically signed by: Manoj Khalil MD 05/17/2019 1:38 AM CDT Due to temporary technical issues with the PACS/Fluency reporting system, reports are being signed by the in house radiologist as a courtesy to ensure prompt reporting. The interpreting radiologist is f ully responsible for the content of the report.
[2019-05-17 10:20] LABS: Hematocrit 25.3 % (39.6-49.0)
--- NOTE | 2019-05-17 12:29 | P.PN ---
Subjective Date of Service: 05/17/19 Primary Care Provider: unknown Chief Complaint: Altered mental status Subjective: Other (Family at bedside. Patient not responding to voice.) Physical Examination - Vital Signs Temperature: 97.9 F Blood Pressure: 119/74 Pulse: 115 Respirations: 17 Pulse Ox (%): 97 - Physical Exam General: Other (Patient) Neck: Supple Respiratory: Crackles/rales (Bilateral) Cardiovascular: Irregular heart rate/rhythm (AFib rate around 110) Gastrointestinal: Normal bowel sounds Neurological: Other (Not able to ambulate, or verbalize.), Abnormal strength ( Poor strength throughout) - Studies Microbiology Data (last 24 hrs): 05/11/19 12:05 Blood - Blood Aerobic Blood Culture - Final Proteus Mirabilis 05/11/19 12:05 Blood - Blood Anaerobic Blood Culture - Final Proteus Mirabilis 05/11/19 12:05 Blood - Blood Gram Stain - Final 05/11/19 11:50 Blood - Blood Aerobic Blood Culture - Final No growth in 5 days. 05/11/19 11:50 Blood - Blood Anaerobic Blood Culture - Final No growth in 5 days. Medications List Reviewed: Yes Assessment & Plan Discharge Plan: Other (Inpatient hospice) Plan to discharge in: 24 Hours Physician Review Additional Text: Impression: Septic shock 2nd to UTI with bacteremia, blood culture positive for Proteus Acute encephalopathy secondary to above now with possible CVA Upper GI bleed with acute on chronic anemia Chronic atrial fibrillation on chronic anti coagulation therapy Acute on chronic diastolic CHF Bilateral pneumonia suspect aspiration Prostate cancer with metastasis Plan: Septic shock 2nd to UTI with bacteremia, blood culture positive for Proteus: His condition has deteriorated. Antibiotics adjusted. Case discussed with family and power of watch repairer. Patient made clear in the past that he wanted to be do not resuscitate. Patient had been made aware that the prostate cancer with metastasis had reoccurred recently prior to admission. He did not want any further treatment for this. In light of multiple issues occurring at this time, medical power of watch repairer desires to pursue hospice. This was discussed in detail with the family who agrees with plan. Will pursue inpatient hospice. Family wants to proceed with comfort measures once hospice is in place. Antibiotics will be discontinued along with other unnecessary medication. Acute encephalopathy secondary to above now with possible CVA: Family does not desire further workup. Upper GI bleed with acute on chronic anemia: Hemoglobin stable. Will pursue hospice. Chronic atrial fibrillation on chronic anti coagulation therapy: Will pursue hospice as above. Will keep the patient with comfort measures. Acute on chronic diastolic CHF: Continue as above Bilateral pneumonia suspect aspiration: Continue as above Prostate cancer with metastasis: Patient recently assessed prior to admission. Patient desired no further treatment. Continue as above. Time Spent Managing Pts Care (In Minutes): 55
[2019-05-17] MEDS ORDERED: FENTANYL CITR 100 MCG/2 ML IV PRN (15:21)
--- NOTE | 2019-05-17 17:48 | P.DS ---
Admission Date: 05/11/19 Discharge Date: 05/17/19 Primary Care Provider: unknown Disposition: HOSPICE-MEDICAL FACILITY Discharge Condition: CRITICAL Reason for Admission: Altered mental status Consultations: Cardiology-Dr. Montalvo GI-Dr. Dalton Procedures: GI Bleeding Scan: FINDINGS: No abnormal radiotracer activity is seen within the bowel. No abnormality displayed IMPRESSION: No evidence of active gastrointestinal bleeding during the examination ECHO: Ejection fraction 69% LEFT VENTRICULAR WALL MOTION: NORMAL EF. DECREASED LEFT VENTRICULAR COMPLIANCE. DOPPLER/COLOR FLOW: MILD TRICUSPID REGURGITATION. NORMAL RIGHT VENTRICULAR SYSTOLIC PRESSURE. COMMENTS: LEFT VENTRICULAR HYPERTROPHY WITH DECREASED LEFT VENTRICULAR COMPLIANCE. NORMAL EF. MILD TRICUSPID REGURGITATION. NORMAL RIGHT VENTRICULAR SYSTOLIC PRESSURE. AORTIC SCLEROSIS. NO STENOSIS. CT head: FINDINGS: There is no acute hemorrhage, mass effect or midline shift. Bradley- white differentiation is preserved. There is no hydrocephalus. There is mild diffuse cerebral atrophy. There are mild patchy hypodensities within the periventricular and subcortical white matter, consistent with microangiopathic ischemic changes. The calvarium is intact. Orbits and globes are unremarkable. The paranasal sinuses are clear. Mastoid air cells are clear. IMPRESSION: No acute intracranial findings. Chest x-ray: FINDINGS: Lung volumes are low accentuating baseline interstitial pattern. Heart size is prominent but not clearly different. CABG surgical changes are noted. Vascular engorgement is evident. Patient has interstitial and alveolar opacities asymmetrically prominent in the right base. Trachea is midline. No measurable pleural effusion and no pneumothorax. No acute bony abnormality seen. No acute aortic findings suspected. IMPRESSION: New interstitial and alveolar opacities have developed in the lower right lung field. Heart, vasculature and lung markings are all prominent in increased over comparison. Findings could all reflect CHF/volume overload. Asymmetric pattern would be unusual, particularly in the right base. A superimposed pneumonia should be considered. Medical problem list: Septic shock 2nd to UTI with bacteremia, blood culture positive for Proteus Acute encephalopathy secondary to above now with possible CVA Upper GI bleed with acute on chronic anemia Chronic atrial fibrillation on chronic anti coagulation therapy Acute on chronic diastolic CHF Bilateral pneumonia suspect aspiration Prostate cancer with metastasis Brief History of Present Illness: 83-year-old male with history of prostate cancer with mets, atrial fibrillation on chronic anti coagulation therapy, anemia, CHF, hyperlipidemia. Patient presented to the emergency room with altered mental status. Family reported increased fatigue and fever. Patient had had poor oral intake. There was also some report of melena. In the emergency room. Patient was febrile and hypotensive. CBC showed note leukocytosis but anemia with a hemoglobin of 9.0. Urinalysis showed likely UTI. Lactic acid elevated. Patient admitted for septic shock. Central line placed. Patient placed on IV fluid protocol and Levophed. Antibiotics were initiated. Hospital Course: Patient presented with multiple complaints including altered mental status, fever and hypertension. Patient presented with septic shock secondary to UTI. This was complicated with melena and acute on chronic anemia. Upper GI bleed was suspected. Patient with history of chronic atrial fibrillation on chronic anti coagulation therapy. During the course of his stay, patient was placed ICU. Sepsis protocol was initiated. Patient given IV fluid bolus protocol with Levophed for persistent hypotension. Patient was given IV antibiotic therapy. As the patient continued to progress blood cultures were positive for Proteus. IV antibiotic therapy was adjusted. Bleeding scan was performed. No bleeding identified. GI was consulted along with Cardiology. His anti coagulation therapy was held due to his anemia. GI planned for colonoscopy but the patient remain on stable. Patient did not require any IV transfusion. Hemoglobin remained stable. As his condition progressed, patient also developed acute on chronic diastolic CHF with possible underlying bilateral pneumonia likely from aspiration. His condition continue due to decline. CT head performed showed no acute CVA but there was a possibility of CVA. Repeat chest x-ray also showed the possibility of bilateral pneumonia likely aspiration. Patient continued to be in atrial fibrillation. His condition worsened. Case discussed at length with family and medical power of banking attorney. Patient with underlying prostate cancer with metastasis. This had been assessed prior to admission as reported by a medical power of banking attorney. Medical power of banking attorney reported that the patient wanted to remain DNR and desired no further treatment of his cancer prior to admission. After a long discussion of multiple concerns of the patient, medical power of banking attorney recommended to continue do not resuscitate plan. Plan of care for inpatient hospice was discussed in detail due to his decline. Family and medical power of banking attorney have agreed to transfer patient to inpatient hospice. Family desires comfort measures only. Antibiotics to be discontinued. Patient transferred to inpatient hospice for comfort measures only. Please see progress notes for more details on his care. Vital Signs/Physical Exam: Temp Pulse Resp BP Pulse Ox 97.9 F 115 H 16 119/74 97 05/17/19 13:14 05/17/19 13:14 05/17/19 16:42 05/17/19 13:14 05/17/19 13:14 General: Other (Patient not able to communicate verbally) Respiratory: Crackles/rales (Bilateral), Expiratory wheezes Cardiovascular: Irregular heart rate/rhythm (Atrial fibrillation around 110) Gastrointestinal: Normal bowel sounds, Soft and benign, Non-distended Neurological: Abnormal strength (Weakness throughout) Laboratory Data at Discharge: WBC 5.1 K/uL (4.3-10.9) D 05/17/19 08:39 Hgb 8.6 g/dL (13.6-17.9) L 05/17/19 10:00 Hct 25.3 % (39.6-49.0) L 05/17/19 10:00 Plt Count 83 K/uL (152-406) L 05/17/19 08:39 PT 16.2 SECONDS (9.5-12.5) H 05/14/19 07:07 INR 1.39 05/14/19 07:07 APTT 32.9 SECONDS (24.3-36.9) 05/14/19 07:07 Sodium 143 mmol/L (136-145) 05/17/19 05:13 Potassium 3.3 mmol/L (3.5-5.1) L 05/17/19 05:13 BUN 8 mg/dL (7-18) 05/17/19 05:13 Creatinine 0.82 mg/dL (0.55-1.3) 05/17/19 05:13 Glucose 113 mg/dL (74-106) H 05/17/19 05:13 Phosphorus 3.1 mg/dL (2.5-4.9) 05/17/19 05:13 Magnesium 1.9 mg/dL (1.8-2.4) 05/16/19 05:40 Total Bilirubin 0.9 mg/dL (0.2-1.0) 05/14/19 04:00 AST 21 U/L (15-37) 05/14/19 04:00 ALT 13 U/L (12-78) 05/14/19 04:00 Alkaline Phosphatase 64 U/L (45-117) 05/14/19 04:00 Troponin I 0.17 ng/mL (0.0-0.045) H 05/15/19 00:50 Triglycerides 70 mg/dL (<150) 05/17/19 05:13 Cholesterol 90 mg/dL (<200) 05/17/19 05:13 HDL Cholesterol 29 mg/dL (40-60) L 05/17/19 05:13 Cholesterol/HDL Ratio 3.10 05/17/19 05:13 Lipase 55 U/L (73-393) L 05/14/19 04:00 Home Medications: ALPRAZolam [Xanax*] 0.25 mg PO BEDTIME PRN 10/01/14 Amiodarone HCl 100 mg PO DAILY 07/19/16 Atorvastatin Calcium [Lipitor*] 10 mg PO BEDTIME 07/19/16 Furosemide [Lasix*] 20 mg PO DAILY 07/19/16 Rivaroxaban [Xarelto*] 7.5 mg PO BEDTIME 07/19/16 Famotidine [Pepcid*] 20 mg PO DAILY 05/17/17 L.acidoph,Paracasei, B.lactis [Probiotic] 1 each PO DAILY 05/17/17 Potassium Chloride [Klor-Con 10] 10 meq PO DAILY 05/17/17 Loratadine 1 cap PO DAILY 12/05/18 Ascorbic Acid [Vitamin C] 500 mg PO BID 05/11/19 Cran/Vitc/Mannose/Fos/Bromeln [Cystex Cranberry Liquid] 1 dose PO BEDTIME Docusate Sodium [Stool Softener] 1 cap PO DAILY 05/11/19 Iron 64 mg PO DAILY 05/11/19 Metoprolol Tartrate 12.5 mg PO BID 05/11/19 Montelukast Sodium 10 mg PO BEDTIME 05/11/19 Patient Discharge Instructions: Continue with Inpatient hospice. Hospice to address further orders. Diet: NPO Activity: Bedrest Time spent managing pt's care (in minutes): 55
--- OUTSIDE RECORDS SUMMARY | 2019-06-12 13:13 | XMS REPORT ---
:1935 [facility] Address [address] [place] [address] Dr. Rubio [address] [place] [id number] Care Team Providers Name Role Phone IRA NOLAND Primary Care Provider Unavailable Problems This patient has no known problems. Allergies, Adverse Reactions, Alerts This patient has no known allergies or adverse reactions. Medications This patient has no known medications. Encounters Start End Encounter Admission Attending Care Care Encounter Date/Time Date/Time Type Type Clinicians Facility Department ID 2016-01-03 2016-01-03 Outpatient [facility] MED [id number] 00:01:00 00:01:00 2015-12-03 2015-12-03 Outpatient [facility] MED [id number] 00:01:00 00:01:00 2015-11-03 2015-11-03 Outpatient [facility] MED [id number] 00:01:00 00:01:00 2015-10-06 2015-10-06 Outpatient [facility] [id number] 13:31:00 13:31:00
== END 2019-05-17 17:00 | disposition hospice, inpatient (51) | DRG 871 ==
LOC: ER 11:38 → OBSVTOIN 17:23 → INTOOBSV 17:23 → ERHOLD 17:23 → 3RD-ICU 19:12 → 2ND 05-13 10:05
PROVIDERS: ADMIT Internal Medicine; ATTEND Family Medicine
PROC: 30233N1 Transfusion of Nonautologous Red Blood Cells into Peripheral Vein, Percutaneous Approach (ICD-10-PCS; principal; 2019-05-12)
DX: A41.59 Other Gram-negative sepsis (principal); G93.41 Metabolic encephalopathy; R65.21 Severe sepsis with septic shock; I63.9 Cerebral infarction, unspecified; I50.33 Acute on chronic diastolic (congestive) heart failure; J69.0 Pneumonitis due to inhalation of food and vomit; N39.0 Urinary tract infection, site not specified; I48.20 Chronic atrial fibrillation, unspecified; D62 Acute posthemorrhagic anemia; C79.9 Secondary malignant neoplasm of unspecified site; K92.0 Hematemesis; K92.1 Melena; C67.9 Malignant neoplasm of bladder, unspecified; I11.0 Hypertensive heart disease with heart failure; K21.9 Gastro-esophageal reflux disease without esophagitis; F41.9 Anxiety disorder, unspecified; E78.00 Pure hypercholesterolemia, unspecified; Z66 Do not resuscitate; G62.9 Polyneuropathy, unspecified; I25.10 Atherosclerotic heart disease of native coronary artery without angina pectoris; Z95.1 Presence of aortocoronary bypass graft; Z79.01 Long term (current) use of anticoagulants
CPT/HCPCS: 36415; 36430; 51702; 70450; 71045; 78278; 80048; 80061; 80076; 80202; 81003; 81015; 82550; 82553; 82962; 83605; 83690; 83735; 83880; 84100; 84132; 84145; 84439; 84443; 84484; 85014; 85018; 85025; 85610; 85730; 86850; 86900; 86901; 87040; 87077; 87086; 87088; 87186; 87205; 93005; 93306; 94640; 96365; 96366; 96367; 96375; 97110; 97112; 97116; 97161; 97530; 99291; 99292; A9560; C9113; J0692; J1940; J2765; J3010; J3370; J3475; J7030; J7040; J7042; J7060; P9016; P9047

== ENCOUNTER 2019-05-17 17:05 | Inpatient (IN) | payer OTHER ==
[2019-05-17] MEDS ORDERED: ONDANSETRON 4 MG/2 ML VIAL IV PRN (17:22)
[2019-05-17] MEDS ORDERED: SCOPOLAMINE HYDROBROMIDE PATCH TD SCH (17:30)
[2019-05-17] MEDS: SCOPOLAMINE HYDROBROMIDE PATCH TD PRN (18:02)
[2019-05-17] MEDS: MORPHINE 2 MG/ML SYR IV SCH ×2 (18:03→20:58)
[2019-05-17] MEDS: LORazepam 2 MG/ML VIAL IV SCH (20:58)
[2019-05-18] MEDS: MORPHINE 2 MG/ML SYR IV SCH ×7 (00:59→22:38)
[2019-05-18] MEDS: LORazepam 2 MG/ML VIAL IV SCH ×7 (00:59→22:38)
[2019-05-18] MEDS: MORPHINE 2 MG/ML SYR IV PRN ×2 (18:32→22:40)
[2019-05-18] MEDS: LORazepam 2 MG/ML VIAL IV PRN ×2 (18:32→22:38)
[2019-05-19] MEDS: MORPHINE 2 MG/ML SYR IV SCH ×6 (01:05→18:09)
[2019-05-19] MEDS: LORazepam 2 MG/ML VIAL IV SCH ×7 (01:05→20:16)
[2019-05-19] MEDS: MORPHINE 2 MG/ML SYR IV PRN ×5 (07:24→22:47)
[2019-05-19] MEDS: LORazepam 2 MG/ML VIAL IV PRN ×5 (07:24→22:47)
[2019-05-19] MEDS ORDERED: MORPHINE 2 MG/ML SYR IV PRN (18:13)
[2019-05-19] MEDS: MORPHINE 4 MG/ML SYR IV SCH (20:16)
[2019-05-19] MEDS ORDERED: MORPHINE 4 MG/ML SYR IV SCH (21:00)
[2019-05-19] MEDS: SCOPOLAMINE HYDROBROMIDE PATCH TD PRN (22:45)
[2019-05-20] MEDS: MORPHINE 4 MG/ML SYR IV SCH ×6 (01:25→20:27)
[2019-05-20] MEDS: LORazepam 2 MG/ML VIAL IV SCH ×6 (01:26→20:28)
[2019-05-20] MEDS: MORPHINE 2 MG/ML SYR IV PRN ×5 (03:10→17:31)
[2019-05-20] MEDS: LORazepam 2 MG/ML VIAL IV PRN ×5 (03:10→17:32)
[2019-05-20] MEDS: SCOPOLAMINE HYDROBROMIDE PATCH TD PRN (11:54)
[2019-05-20 22:10] VITALS: BP 71/49; TEMP 100.3
[2019-05-20 22:20] VITALS: O2SAT 82
== END 2019-05-20 20:53 | disposition expired | DRG 951 ==
LOC: 2ND 17:05
PROVIDERS: ADMIT Internal Medicine Hematology & Oncology; ATTEND Internal Medicine Hematology & Oncology
DX: Z51.5 Encounter for palliative care (principal); A41.9 Sepsis, unspecified organism; Z66 Do not resuscitate
CPT/HCPCS: J2270